=== PATIENT | female | born 1960 | race Caucasian/White ===

== ENCOUNTER 2019-09-25 09:41 | Outpatient (CLI) | payer OTHER, SELFPAY ==
--- NOTE | ~2019-09-25 | MM_ITS ---
EXAMINATION: MM screening [facility] [place] HISTORY: Screening mammogram TECHNIQUE: Craniocaudal and mediolateral oblique 3-D tomosynthesis images were obtained and synthetic 2-D images were generated. CAD analysis was submitted and interpreted. COMPARISON: 09/12/2018, 09/04/2017 BREAST PARENCHYMAL COMPOSITION: There are scattered areas of fibroglandular density. FINDINGS: There is no evidence of suspicious mass, calcification, or architectural distortion to sugg est malignancy in either breast. There has been no suspicious interval change. IMPRESSION: 1. No mammographic evidence of malignancy. 2. Recommend routine screening mammography in one year. BI-RADS Category 1: Negative Reviewed, dictated and finalized at location A.
== END 2019-09-25 09:42 | disposition home or self-care (01) ==
LOC: ANHIMG 09:43
PROVIDERS: PCP Family Medicine; Visit Provider Obstetrics & Gynecology
DX: Z12.31 Encounter for screening mammogram for malignant neoplasm of breast (principal)
CPT/HCPCS: 77063; 77067

== ENCOUNTER 2019-10-29 08:00 | Outpatient (RCR) | payer OTHER, SELFPAY ==
[2019-09-30 08:00] VITALS: BP_SYST 125
--- NOTE | 2019-09-30 09:09 | PTOPEVAL ---
PHYSICAL THERAPY EVALUATION AND PLAN OF CARE 09-30-2019 The PT evaluation was completed for the diagnosis of R shoulder impingement. Her plan of treatment is scheduled for 1x/week for 4 weeks. Paz requested 1x/week due to working and having a co-payment. She is motivated and will do her home exercises. Thank you for referring Paz Szymanski to [facility]. Please review, sign, date and return this plan of care CAITY. I agree with and certify that the following plan of care is medically necessary. Referring Physician Date Attending Provider: Demond Quigley MD *PT Outpatient Evaluation Start: 09/30/19 08:10 Document 09/30/19 08:00 ZENA (Rec: 09/30/19 09:09 ZENA [id number]) Outpatient Past Medical History Past Medical History Source of Past Medical History Patient Neurological History Hx Neurological Disorders No Significant History Cardiovascular History Hx Cardiac Disorders No Significant History Respiratory History Hx Sleep Apnea Yes Gastrointestinal History Hx Hernia Yes: hiatial hernia Musculoskeletal History Hx Back Pain Yes Hx Other Musculoskeletal Disorders Yes: chronic neck pain-treat by chiropractor Integumentary History Hx Other Skin Disorders Yes: basal cell cancer removal from nose Other History Hx Other Surgeries Yes: vein surgery R thigh for circulation Evaluation Information Problem Diagnosis R shoulder impingement Onset May 2019 Subjective Information pop in shoulder when closing Query Text:As Reported By Patient/ car trunk; had injection in Family shoulder 09-25-19; improved since injection; Diagnostic Tests X-Rays For This Problem Yes: mild A-C joint arthritis, Previous Treatments Previous Treatments For This Problem no PT for shoulder; chiropractor for neck and back pain Prior Level of Function Activity Level (Last 3 Months) 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
--- NOTE | 2019-10-29 08:49 | PTOPEVAL ---
PHYSICAL THERAPY RE-EVALUATION 10-29-2019 Ms. Szymanski has received 5 PT sessions, from September 29 to today, for the diagnosis of R shoulder impingement. Compared to the initial evaluation: pain rating has increased at the worst rating from 2 to 5/10; is able to tolerate lying on her shoulder now; AROM and strength of shoulder have improved; posture awareness has improved. And she has been educated on posture and home exercises. She continues to have tenderness over anterior and lateral GH joint, forward head and rounded shoulder posture. Abduction and extension increase her pain. Paz has a follow up appointment next week. If PT is to continue, please give her a new script. Thank you for referring Paz Szymanski to [facility]. Please review, sign, date and return this plan of care CAITY. I agree with and certify that the following plan of care is medically necessary. Referring Physician Date Attending Provider: Demond Quigley MD *PT Outpatient Re-Evaluation Document 10/29/19 08:07 ZENA (Rec: 10/29/19 08:48 ZENA [id number]) Pain Assessment Timing of Pain Assessment Timing of Pain Assessment Assessment Pain Scale Pain Scale Used Numeric (1 - 10) Self Report Pain Assessment Right Shoulder(s) Reported Pain Level 2 Pain Frequency Chronic Other Pain Description mild throb-top and ant shoulder Lowest Pain Intensity 0 Greatest Pain Intensity 5 Pain Aggravating Factors Exercise/Activity Other Pain Aggravating Factors abduct and ext shoulder; can lie on R side 10 min;incr pain work turn cyli Pain Relief Interventions Used By Inactivity/Rest Patient Other Alleviating Interventions arm at side, biofreeze, no meds Additional Pain Comments reinforced use of heat/ice- have not been using Pain Score Pain Score 2: Self Report Additional Pain Score Comments ice at end of session to decrease pain- reinforced use of ice; kinesiotape to shoulder decreases pain-- educated pt on application of tape for home use. Upper Extremity Range of Motion General Upper Extremity Range of Motion Gross Upper Extremity Range of Motion standing active/ supine Comments passive: R shoulder: flexion 140'/165'; [id number]'/ 150' ; ER- reach palm to back of head; IR- behind back, thumb to bra strap; pain increase with abduction and extension of shoulder; wall stand: distance mid GH to
--- NOTE | 2019-12-12 13:17 | PCPTNOTE ---
PHYSICAL THERAPY DISCHARGE 12-12-2019 Attending Provider: Demond Quigley MD Patient:Paz Szymanski Date of :1960 Mrs. Szymanski has not returned for any further treatments since the reevaluation on 10/29/2019, therefore she will be discharged at this time. Refer to the Reevaluation report for her status at the last session. Thank you for referring Paz to [facility]. Please review, sign, date and return this discharge summary CAITY. I have been updated about the patient's current status and I agree with discharge from the above service at this time. Referring Physician Date
== END 2019-12-15 09:43 | disposition home or self-care (01) ==
LOC: ANHPT 08:00
PROVIDERS: PCP Family Medicine; Visit Provider Orthopaedic Surgery
DX: M75.41 Impingement syndrome of right shoulder (principal)
CPT/HCPCS: 97110; 97161

== ENCOUNTER 2020-10-11 07:48 | Outpatient (CLI) | payer OTHER, SELFPAY ==
--- NOTE | ~2020-10-11 | MM_ITS ---
EXAMINATION: MM screening [facility] BI w [place] HISTORY: Screening mammogram TECHNIQUE: Craniocaudal and mediolateral oblique 3-D tomosynthesis images were obtained and synthetic 2-D images were generated. CAD analysis was submitted and interpreted. COMPARISON: 09/25/2019, 09/12/2018, 09/04/2017 BREAST PARENCHYMAL COMPOSITION: There are scattered areas of fibroglandular density. FINDINGS: There is no evidence of suspicious mass, calcification, or architectural distortion to sugg est malignancy in either breast. There has been no suspicious interval change. IMPRESSION: 1. No mammographic evidence of malignancy. 2. Recommend routine screening mammography in one year. BI-RADS Category 1: Negative Reviewed, dictated and finalized at location A.
== END 2020-10-11 07:49 | disposition home or self-care (01) ==
PROVIDERS: PCP Family Medicine; Visit Provider Obstetrics & Gynecology
DX: Z12.31 Encounter for screening mammogram for malignant neoplasm of breast (principal)
CPT/HCPCS: 77063; 77067

== ENCOUNTER 2021-11-04 07:06 | Outpatient (CLI) | payer OTHER, SELFPAY ==
--- NOTE | ~2021-11-04 | MM_ITS ---
EXAMINATION: MM screening [place] HISTORY: Screening TECHNIQUE: Craniocaudal and mediolateral oblique 3-D tomosynthesis images were obtained and synthetic 2-D images were generated. CAD analysis was submitted and interpreted. COMPARISON: Comparison to multiple prior studies sequentially, with oldest reviewed study dated 12/25. BREAST PARENCHYMAL COMPOSITION: There are scattered areas of fibroglandular density. FINDINGS: There is no evidence of suspicious mass, calcification, or architectural distortion to sugg est malignancy in either breast. There has been no suspicious interval change. IMPRESSION: 1. No mammographic evidence of malignancy. 2. Recommend routine screening mammography in one year. BI-RADS Category 1: Negative Reviewed, dictated and finalized at location L.
== END 2021-11-04 07:07 | disposition home or self-care (01) ==
LOC: ANHIMG 07:11
PROVIDERS: PCP Family Medicine; Visit Provider Obstetrics & Gynecology
DX: Z12.31 Encounter for screening mammogram for malignant neoplasm of breast (principal)
CPT/HCPCS: 77063; 77067

== ENCOUNTER 2022-04-17 07:29 | Outpatient (CLI) | payer OTHER, SELFPAY ==
--- NOTE | ~2022-04-17 | XR_ITS ---
EXAMINATION: XR chest 2V DATE: 04/17/2022 07:44 INDICATION: Cough TECHNIQUE: PA and lateral views of the chest were obtained. COMPARISON: None FINDINGS: Linear discoid atelectasis/scarring at the right lower lobe. No other airspace opacities, pulmonary e evy, pleural effusion or pneumothorax. The cardiomediastinal silhouette is normal. Visualized bones and soft tissues are unremarkable. IMPRESSION: 1. Mild discoid atelectasis/scarring in the right lower lobe. Reviewed, dictated and finalized at location B. LING TANK OPERATOR
== END 2022-04-17 07:30 | disposition home or self-care (01) ==
LOC: ANHIMG 07:32
PROVIDERS: PCP Family Medicine; Visit Provider Family Medicine
DX: R05.9 Cough, unspecified (principal); R91.8 Other nonspecific abnormal finding of lung field
CPT/HCPCS: 71046

== ENCOUNTER 2022-09-06 09:42 | Outpatient (CLI) | payer OTHER, SELFPAY ==
--- NOTE | ~2022-09-06 | CT_ITS ---
EXAMINATION: CT lung screening DATE: 09/06/2022 10:13 INDICATION: Current smoker. Screening for lung cancer. TECHNIQUE: Computed tomography (CT) of the chest was performed without intravenous contrast. The dose -length product was 76.53 mGy-cm. Automated exposure control and iterative reconstruction technique w ere employed. COMPARISON: Chest x-ray dated 04/17/2022 FINDINGS: There is right hydronephrosis. No significant pleural or pericardial effusion. No thoracic lymphadenopathy. There is mild atherosclerosis. No endobronchial lesions. There is chronic right lowe r lobe atelectasis/scarring. No pneumothorax. There are a few small 1 mm nodules of the upper lobes, likely benign. Mild thoracic spondylosis. Accentuated thoracic kyphosis. No focal lytic or blastic le sions. IMPRESSION: 1. Lung-RADS category 2: Benign appearance or behavior. Continue annual screening with noncontrast lo w-dose chest CT in 12 months. 2: Right hydronephrosis, partially visualized. Consider correlation with CT abdomen and pelvis witho ut and with contrast. Reviewed, dictated and finalized at location B. IMPRESSION: 1. Lung-RADS category 2: Benign appearance or behavior. Continue annual screeni ng with noncontrast low-dose chest CT in 12 months. 2: Right hydronephrosis, partially visualized. Consider correlation with CT ab domen and pelvis without and with contrast.
== END 2022-09-06 09:43 | disposition home or self-care (01) ==
PROVIDERS: PCP Family Medicine; Visit Provider Nurse Practitioner Family
DX: Z12.2 Encounter for screening for malignant neoplasm of respiratory organs (principal); F17.210 Nicotine dependence, cigarettes, uncomplicated; N13.30 Unspecified hydronephrosis
CPT/HCPCS: 71271

== ENCOUNTER 2022-09-11 13:36 | Outpatient (CLI) | payer OTHER, SELFPAY ==
--- NOTE | ~2022-09-11 | CT_ITS ---
EXAMINATION: CT abdomen pelvis wo/w con DATE: 09/11/2022 14:40 INDICATION: Right hydronephrosis seen on lung scan. TECHNIQUE: Computed tomography (CT) of the abdomen and pelvis was performed without and with 130 cc O mnipaque 350 intravenous contrast. The dose-length product was 1251.92 mGy-cm. Automated exposure control and iterative reconstruction technique were employed. COMPARISON: CT dated 09/06/2022 FINDINGS: There is dependent atelectasis. Heart size normal. No significant pleural or pericardial ef fusion. There is hepatomegaly. The spleen, pancreas, adrenal glands are unremarkable. There is a larg e parapelvic cyst of the right kidney measuring 6 cm. No hydronephrosis. Gallbladder is present. Nono bstructive bowel pattern. There is a fat-containing right inguinal hernia. No free air or free fluid. No acute osseous abnormality. There is grade 1 spondylolisthesis at L5-S1 secondary to spondylolysis . IMPRESSION: 1. Large right renal parapelvic cyst measuring 6 cm corresponds to abnormality seen on prior chest CT . No hydronephrosis. 2: Hepatomegaly. 3: Fat-containing right inguinal hernia. Reviewed, dictated and finalized at location B. IMPRESSION: 1. Large right renal parapelvic cyst measuring 6 cm corresponds to abnormality seen on prior chest CT. No hydronephrosis. 2: Hepatomegaly. 3: Fat-containing right inguinal hernia.
[2022-09-11 14:20] LABS: Estimated Glomerular Filt Rate > 60
== END 2022-09-11 13:37 | disposition home or self-care (01) ==
PROVIDERS: PCP Family Medicine; Visit Provider Nurse Practitioner Family
DX: N13.30 Unspecified hydronephrosis (principal); R93.89 Abnormal findings on diagnostic imaging of other specified body structures; K40.90 Unilateral inguinal hernia, without obstruction or gangrene, not specified as recurrent; N28.1 Cyst of kidney, acquired
CPT/HCPCS: 74178; Q9967

== ENCOUNTER 2022-12-28 07:39 | Outpatient (CLI) | payer OTHER, SELFPAY ==
--- NOTE | ~2022-12-28 | MM_ITS ---
EXAMINATION: MM screening [facility] [place] HISTORY: Screening mammogram TECHNIQUE: Craniocaudal and mediolateral oblique 3-D tomosynthesis images were obtained and synthetic 2-D images were generated. CAD analysis was submitted and interpreted. COMPARISON: 11/04/2021, 10/11/2020, 09/25/2019 BREAST PARENCHYMAL COMPOSITION: There are scattered areas of fibroglandular density. FINDINGS: No suspicious mass, calcification, or architectural distortion are identified in either shivani ast to suggest malignancy. There has been no suspicious interval change. IMPRESSION: 1. No mammographic evidence of malignancy. 2. Recommend routine screening mammography in one year. BI-RADS Category 1: Negative Reviewed, dictated and finalized at location L.
== END 2022-12-28 07:40 | disposition home or self-care (01) ==
PROVIDERS: PCP Family Medicine; Visit Provider Obstetrics & Gynecology
DX: Z12.31 Encounter for screening mammogram for malignant neoplasm of breast (principal)
CPT/HCPCS: 77063; 77067

== ENCOUNTER 2023-03-13 13:25 | Outpatient (CLI) | payer OTHER, SELFPAY ==
--- NOTE | 2023-03-13 13:30 | ECG_ITS ---
Measurements Intervals [place] Rate: 63 P: 50 MS: 133 QRS: -8 QRSD: 95 T: 45 QT: 407 QTc: 418 Interpretive Statements SINUS RHYTHM MINIMAL Q WAVES- HIGH LATERAL LEADS BORDERLINE T WAVE ABNORMALITY- INFERIOR LEADS BASELINE ARTIFACT- I, III, AVR, AVL BORDERLINE ECG NO PREVIOUS ECG AVAILABLE FOR COMPARISON Electronically Signed On 03-13-2023 14:51:12 WOOD INSPECTOR by Ugo Callejas D.O.
== END 2023-03-13 13:26 | disposition home or self-care (01) ==
LOC: ANHSURGERY 13:31
PROVIDERS: PCP Family Medicine; Visit Provider Surgery
DX: Z01.818 Encounter for other preprocedural examination (principal); R93.1 Abnormal findings on diagnostic imaging of heart and coronary circulation; E78.2 Mixed hyperlipidemia; K40.90 Unilateral inguinal hernia, without obstruction or gangrene, not specified as recurrent
CPT/HCPCS: 36415; 86850; 86900; 86901; 93005

== ENCOUNTER 2023-03-15 02:04 | Day surgery (SDC) | payer OTHER, SELFPAY ==
[2023-03-09 10:48] VITALS: BMI 25.8
--- NOTE | 2023-03-09 10:56 | PC.NURSE ---
Report to the Outpatient Waiting Room, entrance under the green pavilion located off [facility], at time 10:00 on date 03/15/23. Planned Procedure Time: 12:00. Time changes happen often and if your time is changed the preop area will call you the afternoon before. - You and your visitor will be asked to self-screen and do not enter if you have any COVID symptoms. - A mask is optional within the hospital at this time. Patients may have clear liquids (water, carbonated beverages, clear teas, apple juice) until 3 hours prior to surgery (9:00) with a maximum of 20 ounces. - No food from midnight until time of surgery Take the following medications with a SIP of water the morning of surgery: NONE DO NOT STOP ANY OF YOUR OTHER PRESCRIPTION MEDICATIONS PRIOR TO SURGERY ?EXCEPT THE FOLLOWING Medications to discontinue per physician: VITAMINS/SUPPLEMENTS Date to take last dose: 03/11/23 Please no make-up, nail ukrainian, hairspray, perfume, deodorant, or body powder the day of surgery. No jewelry (including any body piercings) or valuables the day of surgery, leave them at home. Please take a shower or bath the night before, or the morning of, surgery with an antibacterial soap. Wear comfortable, loose fitting clothing. - Jewelry must be removed prior to entering the operating room. Rings and piercings that are not removed may be cut off. - The hospital will not accept responsibility for valuables. - Please leave all valuables, including medications, at home the day of surgery. If you are going home after surgery, a licensed peg driver must drive you home. - NO public transportation without another adult if you receive anesthesia. - We recommend that an adult stay with you for 24 hours following discharge. - We also recommend that you do not drive, make important decision, drink alcoholic beverages, or take any drugs that were not prescribed by your health care provider for at least 24 hours after your discharge time. Follow any additional instructions given to you from your surgeon. If you or anyone in your household have experienced Covid symptoms in the past week, please notify your surgeon or the nurse liaison at the phone number below for possible testing. Telephone instructions given to PT Abbey GREEN and asked if any additional questions and then verbalized understanding. Patient advised to call surgeon office or pre surgery nurse liaison [phone] if any additional questions.
[2023-03-15] VITALS (9 sets, daily range): BP systolic 116–132; BP diastolic 65–84; PULSE 69–80; RESP 12–20; TEMP 36.1; O2SAT 96–100; BMI 25.7
[2023-03-15] MEDS: LACTATED RINGERS 1,000 ML 30 ML IV CONT ×2 (10:48→13:52)
[2023-03-15] MEDS: KETOROLAC 15 MG/ML VIAL (*BKC) IV PUSH (10:48)
[2023-03-15] MEDS: ACETAMINOPHEN 500 MG TABLET 1000 MG PO (10:48)
--- NOTE | 2023-03-15 11:13 | WPDANESEPPF ---
Anes - Initial Pre Proc Eval Procedure: Operation Date: 03/15/23 12:00 Proposed Procedures p Robotic Assisted Right Inguinal Hernia Repair with Mesh - Landy Mason MD Date/Time: 03/15/23 11:13 Surgeon: Landy Mason MD Pre Op Diagnosis: Rt Ing Hernia Patient Data Age: 62 Gender: F Height: 1.73 m Weight: 76.8 kg Last Vital Signs Temp 36.1 C L 03/15/23 10:05 Pulse 69 03/15/23 10:05 Resp 16 03/15/23 10:05 BP 116/66 03/15/23 10:05 Pulse Ox 97 03/15/23 10:05 O2 Del Method Room Air 03/15/23 10:05 Allergies Allergy/AdvReac Type Severity Reaction Status Date / Time codeine Allergy Mild NAUSEA Verified 03/09/23 10:46 Home Medications Medication Instructions Recorded Confirmed Type calcium carbonate 600 mg calcium 600 mg PO DAILY 09/22/22 03/09/23 History (1,500 mg) tablet (Calcium) diphenhydramine 25 1 tablet PO QHS PRN Sleep 09/22/22 03/09/23 History mg-acetaminophen 500 mg tablet (Tylenol PM Extra Strength) [id number] 8 mg-folic 400 1 tablet PO DAILY 09/22/22 03/09/23 History mcg-K 50 mcg-lutein 300 mcg tablet (Multivitamin Women 50 Plus) vitamin B complex 1 tablet PO DAILY 09/22/22 03/09/23 History simvastatin 40 mg tablet 40 mg PO DAILY #90 tabs 10/02/22 03/09/23 Rx omeprazole 40 mg capsule,delayed 40 mg PO DAILY #90 caps 11/06/22 03/09/23 Rx release diclofenac sodium 1 % topical gel 2 g topical QID 01/03/23 03/09/23 History (Voltaren Arthritis Pain) Patient hx anesthesia problems: none Family hx anesthesia problems: none Results Review: All pre-operative results and documents have been reviewed as part of the pre-operative evaluation. [facility] Past Medical History Medical History Abnormal CT scan (~08/2022) Adult BMI 25.0-25.9 kg/sq m Arthritis BMI 26.0-26.9,adult Breast cancer screening by mammogram normal mammogram 12/28/2022. Bronchitis Carpal tunnel syndrome on both sides Chronic constipation Chronic right shoulder pain Cough Chest x-ray on 04/17/2022 with mild discoid atelectasis right lower lobe otherwise normal Depression Encounter for wellness examination in adult GERD (gastroesophageal reflux disease) History of ectopic (~1990) Hydronephrosis of right kidney CT of the abdomen on 09/11/2022 reveals a 6 cm parapelvic cyst of the right kidney with no evidence of hydronephrosis. Fat containing right inguinal hernia. Menopausal symptoms Mixed hyperlipidemia Total cholesterol 205, triglycerides 144, HDL 56, LDL 123 with ratio 3.7 on 09/19/2022. Neoplasm of skin Obstructive sleep apnea failure on CPAP due to headache. Hemoglobin 15.1, hematocrit 45.5 on 09/19/2022. Overweight (BMI 25.0-29.9) Pain, joint, hand, left pain base of left thumb Renal cyst, acquired, right (~09/11/22) 6 cm parapelvic right renal cyst with no evidence of hydronephrosis on 09/11/2022. Screening for lung cancer Sleep apnea Tobacco use disorder, continuous patient quit smoking on 09/14/2022. Surgical History Surgical History H/O adenoidectomy (~1964) H/O vein stripping (~2009) right leg Hx of tonsillectomy (~1964) Status post Mohs surgery (~2005) tip of nose Family History Family History Mother Heart disease GERD (gastroesophageal reflux disease) Acute myocardial infarction Father Asthma Heart disease Emphysema of lung Acute myocardial infarction Sibling Heart disease Asthma Migraines Social History Social History Smoking packs per day: 0.75 Smoking cigarettes per day: 15.0 Years smoked: 40 Smoking pack-years: 30.00 Smoking status: Former smoker Tobacco type: cigarettes Smoking end date: 09/14/22 Alcohol intake: never Substance use: never Substance use type: does not use La
--- NOTE | 2023-03-15 11:58 | PM.IMHP ---
H&P: HPI History of Present Illness Date/Time: 03/15/23 11:59 Chief Complaint: right inguinal hernia Narrative: Paz is a 62 y/o female who presents to the office at the request of Radha Blanca NP for evaluation of a right inguinal hernia. Patient states she first noticed a bulge in her right groin as well as right groin pain that radiated down into her thigh ~30 years ago. She states recently the pain has become more frequent over the past few months. She has not noticed any increase in size of the bulge. She states the bulge is somewhat reducible, but there are times she is unable to push it back in. CT abd/pelvis on 09/11/22 revealed a fat-containing right inguinal hernia. Review of Systems Review of Systems: All systems reviewed & are unremarkable except as noted in HPI and below PMFSH Past Medical History Medical History Abnormal CT scan (~08/2022) Adult BMI 25.0-25.9 kg/sq m Arthritis BMI 26.0-26.9,adult Breast cancer screening by mammogram normal mammogram 12/28/2022. Bronchitis Carpal tunnel syndrome on both sides Chronic constipation Chronic right shoulder pain Cough Chest x-ray on 04/17/2022 with mild discoid atelectasis right lower lobe otherwise normal Depression Encounter for wellness examination in adult GERD (gastroesophageal reflux disease) History of ectopic (~1990) Hydronephrosis of right kidney CT of the abdomen on 09/11/2022 reveals a 6 cm parapelvic cyst of the right kidney with no evidence of hydronephrosis. Fat containing right inguinal hernia. Menopausal symptoms Mixed hyperlipidemia Total cholesterol 205, triglycerides 144, HDL 56, LDL 123 with ratio 3.7 on 09/19/2022. Neoplasm of skin Obstructive sleep apnea failure on CPAP due to headache. Hemoglobin 15.1, hematocrit 45.5 on 09/19/2022. Overweight (BMI 25.0-29.9) Pain, joint, hand, left pain base of left thumb Renal cyst, acquired, right (~09/11/22) 6 cm parapelvic right renal cyst with no evidence of hydronephrosis on 09/11/2022. Screening for lung cancer Sleep apnea Tobacco use disorder, continuous patient quit smoking on 09/14/2022. Surgical History Surgical History H/O adenoidectomy (~1964) H/O vein stripping (~2009) right leg Hx of tonsillectomy (~1964) Status post Mohs surgery (~2005) tip of nose Family History Family History Mother Heart disease GERD (gastroesophageal reflux disease) Acute myocardial infarction Father Asthma Heart disease Emphysema of lung Acute myocardial infarction Sibling Heart disease Asthma Migraines Social History Social History Smoking packs per day: 0.75 Smoking cigarettes per day: 15.0 Years smoked: 40 Smoking pack-years: 30.00 Smoking status: Former smoker Tobacco type: cigarettes Smoking end date: 09/14/22 Alcohol intake: never Substance use: never Substance use type: does not use Lack of Transportation: No Lack of Food: Never True Current Housing: I Have Housing Concerned About Future Housing: No Difficulty Paying Gas/Electric Bills: No Difficulty Paying for Meds: No Currently Unemployed: No Education: Associate Degree Difficulty w/ Childcare or Family Care: No Living arrangements: alone Spiritual care concerns: No Meds Home Medications and Allergies Home Medications Medication Instructions Recorded Confirmed Type calcium carbonate 600 mg calcium 600 mg PO DAILY 09/22/22 03/09/23 History (1,500 mg) tablet (Calcium) diphenhydramine 25 1 tablet PO QHS PRN Sleep 09/22/22 03/09/23 History mg-acetaminophen 500 mg tablet (Tylenol PM Extra Strength) [id number] 8 mg-folic 400 1 tablet PO DAILY 09/22/22 03/09/23 History mcg-K 50 mcg-lutein 300 mcg tablet (Multivitamin Women 50
--- NOTE | 2023-03-15 12:03 | WPDHPUPDATE1 ---
History and Physical Update Update Date/Time: 03/15/23 12:03 History and Physical has been reviewed, including an updated exam of the patient. There are NO changes in the patient's condition. Risks, benefits, and alternatives have been discussed and questions answered. Patient agrees to proceed with procedure.
[2023-03-15] MEDS: ceFAZolin 2 GM/D5W 50 ML 2 GM/50 ML BAG IVPB (12:09)
[2023-03-15] MEDS: BUPIVACAINE/EPINEPHRINE 0.5% 50 ML VIAL 30 ML INFILTRATE (12:50)
--- NOTE | 2023-03-15 13:32 | W.PM.PROC2 ---
Procedure Note - Detailed Date of Procedure 03/15/23 Pre-op Diagnosis Right inguinal hernia Post-op Diagnosis Same Procedure Performed robotic assisted right inguinal hernia repair with mesh, lysis of adhesions of approximately 30 minutes Surgeon Landy Mason MD Anesthesia General Indications 62-year-old female with progressively worsening right inguinal hernia over the last few years Findings indirect right inguinal hernia, extensive adhesions in lower abdomen Description of Procedure Patient was brought into the operating room and placed in the supine position. After adequate induction of general anesthesia, the patient was prepped and draped in normal sterile fashion. A time-out was then done to verify the patient's identity, as well as the procedure being performed. Began by making a 8 mm incision in the supraumbilical region, a Veress needle was then placed into the peritoneal cavity. CO2 gas was then insufflated and after adequate pneumoperitoneum was achieved, the Veress needle was removed. I then placed an 8 mm trocar through this incision. I then placed the endoscope through this trocar site and under direct visualization placed a further 8 mm port in the left mid abdomen. There was noted to be extensive adhesions in the lower pelvis, particularly on the right. Given these findings, I did a lysis of adhesions to allow placement of the right mid abdominal port. This was done sharply and bluntly with the laparoscopic scissors under direct visualization. Once adequate dissection was done, I placed a further 8 mm port in right mid abdomen under direct visualization. The [employer] robot was then docked to the 3 trocar sites. I then scrubbed out and went to the robotic console. Upon examining the pelvis, it was noted that the patient had a large right inguinal hernia. The left side was examined and no hernia defect was noted. I finished the lysis of adhesions using the robotic instruments. The total time of lysis of adhesions took approximately 30 minutes. I began by making a preperitoneal flap approximately 6 cm superior to the defect. This flap was carried medially past the umbilical ligaments in laterally to the transversalis. It then began dissection of my medial compartment taking this down to the pubic tubercle. I then began the lateral dissection taking this down to the transversalis fascia. Once these compartments were achieved, I began dissection around round ligament . A large indirect hernia was noted at this point. Using careful dissection, was able to reduce indirect hernia sac off the round ligament. Given the size of the hernia, I did go ahead and transect the round ligament to allow better placement of the mesh. Once this was adequately done, I went ahead and placed a large piece of 3D Max mesh into the abdominal cavity. The mesh was carefully positioned, centering the center of the mesh over the indirect defect. Once this was done, was very satisfied with our repair. Using 3-0 Vicryl sutures, I tacked the mesh medially to Tien's ligament. Two lateral sutures were placed from the mesh to the transversalis fascia. I then closed the peritoneal flap with a running 2.0 V Lock suture. The abdomen was then desufflated, and all ports were removed. All incisions were then closed with the 4.0 monocryl suture. Dermabond was placed on each wound. The patient tolerated the procedure well, was extubated in the operating room postoperatively, and will now be transferred to the recovery room in stable condition. Implants large 3DMax mesh Estimated Blood Loss 10 Drains No Packing No Pathology None sent Complications No immediate complications Condition Stable Disposition PACU [facility] Billing Surgery - Charge Forward: Surgery Billing
[2023-03-15] MEDS: traMADol HCL (*CRX) 50 MG TABLET PO (15:36)
== END 2023-03-15 15:40 | disposition home or self-care (01) ==
PROVIDERS: PCP Family Medicine; Visit Provider Surgery
PROC: 8E0Y4CZ Robotic Assisted Procedure of Lower Extremity, Percutaneous Endoscopic Approach (ICD-10-PCS; CPT 49650; principal; 2023-03-15 12:00)
DX: K40.90 Unilateral inguinal hernia, without obstruction or gangrene, not specified as recurrent (principal); K66.0 Peritoneal adhesions (postprocedural) (postinfection); E78.2 Mixed hyperlipidemia; K59.09 Other constipation; F32.A Depression, unspecified; K21.9 Gastro-esophageal reflux disease without esophagitis; Z85.828 Personal history of other malignant neoplasm of skin; G47.33 Obstructive sleep apnea (adult) (pediatric); Z99.89 Dependence on other enabling machines and devices; Z82.49 Family history of ischemic heart disease and other diseases of the circulatory system; Z87.891 Personal history of nicotine dependence
CPT/HCPCS: 49650; S2900; 36415; 86850; 86900; 86901; 93005; A9270; C1781; J0690; J1100; J1885; J2405; J2704; J3475; J7030; J7120

== ENCOUNTER 2023-05-03 17:29 | Emergency (ER) | payer OTHER, SELFPAY ==
[2023-05-03 17:46] VITALS: BP 124/71; PULSE 68; RESP 16; TEMP 37; O2SAT 99
--- NOTE | 2023-05-03 18:38 | ED.EAR ---
HPI - Ear Problem General Chief complaint: Ear Stated complaint: ringing in ears Time Seen by Provider: 05/03/23 18:39 Source: patient Mode of arrival: ambulatory Limitations: no limitations History of Present Illness HPI Narrative: 62-year-old female presents with complaint of ringing and whooshing noise to left ear. States I can feel my self talking and my ear . Denies pain. No other symptoms. Denies congestion, cough, postnasal drainage, headache, fever, chills. All systems reviewed and negative except as noted above. Related Data Home Medications Medication Instructions Recorded Confirmed vitamin B complex 1 tablet PO DAILY 09/22/22 05/03/23 Allergies Allergy/AdvReac Type Severity Reaction Status Date / Time codeine Allergy Mild NAUSEA Verified 05/03/23 17:50 Review of Systems Review of Systems: CONSTITUTIONAL: Denies fever, chills, or sweats. EYES: Denies visual changes, redness, or discharge. ENT: Denies rhinorrhea, congestion, sore throat, or otalgia. Reports ringing and wishing to left ear. CARDIOVASCULAR: Denies chest pain, palpitations, or edema. RESPIRATORY: Denies cough or dyspnea. GASTROINTESTINAL: Denies abdominal pain, nausea, vomiting, or diarrhea. GENITOURINARY: Denies dysuria or hematuria. SKIN: Denies rash or itching. MUSCULOSKELETAL: Denies back pain, joint pain, or myalgia. NEUROLOGIC: Denies headache, numbness, or weakness. PSYCHIATRIC: Denies anxiety or depression. All other systems reviewed are negative, except as documented in HPI. [facility] Past Medical History Medical History (Updated 05/03/23 @ 18:45 by Nathalia Amado NP) Abnormal CT scan (~08/2022) Adult BMI 25.0-25.9 kg/sq m Arthritis BMI 26.0-26.9,adult Breast cancer screening by mammogram normal mammogram 12/28/2022. Bronchitis Carpal tunnel syndrome on both sides Chronic constipation Chronic right shoulder pain Cough Chest x-ray on 04/17/2022 with mild discoid atelectasis right lower lobe otherwise normal Depression Encounter for wellness examination in adult GERD (gastroesophageal reflux disease) History of ectopic (~1990) Hydronephrosis of right kidney CT of the abdomen on 09/11/2022 reveals a 6 cm parapelvic cyst of the right kidney with no evidence of hydronephrosis. Fat containing right inguinal hernia. Menopausal symptoms Mixed hyperlipidemia Total cholesterol 205, triglycerides 144, HDL 56, LDL 123 with ratio 3.7 on 09/19/2022. Neoplasm of skin Obstructive sleep apnea failure on CPAP due to headache. Hemoglobin 15.1, hematocrit 45.5 on 09/19/2022. Overweight (BMI 25.0-29.9) Pain, joint, hand, left pain base of left thumb Renal cyst, acquired, right (~09/11/22) 6 cm parapelvic right renal cyst with no evidence of hydronephrosis on 09/11/2022. Screening for lung cancer Sleep apnea Tobacco use disorder, continuous patient quit smoking on 09/14/2022. Surgical History Surgical History (Updated 03/28/23 @ 10:02 by Dimple Jones MA) H/O adenoidectomy (~1964) H/O vein stripping (~2009) right leg Hx of inguinal hernia repair robotic assisted right inguinal hernia repair with mesh, lysis of adhesions of approximately 30 minutes on 03/14/23 Hx of tonsillectomy (~1964) Status post Mohs surgery (~2005) tip of nose Family History Family History Mother Heart disease GERD (gastroesophageal reflux disease) Acute myocardial infarction Father Asthma Heart disease Emphysema of lung Acute myocardial infarction Sibling Heart disease Asthma Migraines Social History Social History Smoking packs per day: 0.75 Smoking cigarettes per day: 15.0 Years smoked: 40 Smoking pack-years: 30.00 Smoking status: Former smoker Tobacco type: cigarettes Smoking end date: 09/14/22 Alcohol intake: never Substance use: never Substance use type: does not use
== END 2023-05-03 18:50 | disposition home or self-care (01) ==
PROVIDERS: Emergency Provider Nurse Practitioner Family; PCP Family Medicine
DX: H93.12 Tinnitus, left ear (principal); H69.92 Unspecified Eustachian tube disorder, left ear; Z87.891 Personal history of nicotine dependence; K21.9 Gastro-esophageal reflux disease without esophagitis; E78.2 Mixed hyperlipidemia; M19.90 Unspecified osteoarthritis, unspecified site; Z85.828 Personal history of other malignant neoplasm of skin
CPT/HCPCS: 99212; G0463

== ENCOUNTER 2023-08-01 09:30 | Outpatient (CLI) | payer OTHER, SELFPAY ==
--- NOTE | 2023-08-01 09:49 | EST_ITS ---
Patient Info Name: Paz Szymanski Age: 62 years : 1960 Gender: Female Ht: 67 in Wt: 172 lbs BSA: 1.94 m2 HR: 66 bpm BP: 146 / 75 mmHg Heart Rhythm: Sinus Rhythm Exam Date: 08/01/2023 10:08 AM Exam Location: Echo Lab Patient Status: Outpatient Admit Date: 08/01/2023 Staff Ordering Physician: Vicente Akers MD Attending Provider: Vicente Akers MD Exercise Technologist: Josiane Ponce CT Exercise Physician: Ugo Callejas DO Exam Type: CA stress test treadmill Study Info Indications R07.89 - Other chest pain A treadmill exercise stress test was performed. Summary 1. 1. Negative Javan exercise stress test for ischemic ST changes by ECG criteria. 2. 2. Good functional capacity, achieving 7 METs of workload. 3. 3. Baseline hypertension. 4. 4. Appropriate HR response to exercise. 5. 5. Appropriate HR recovery at 1 minute post exercise. 6. 6. No imaging with stress testing. 7. 7. Patient informed of the above results. Protocol: Javan Stress ECG Details Stage: REST Duration (min): 1 min : 2 sec Speed (mph): 0.0 Grade (%): 0 HR (bpm): 67 SBP (mmHg): 146 DBP (mmHg): 75 METS: --- Stage: REST Duration (min): 6 min : 31 sec Speed (mph): 0.0 Grade (%): 0 HR (bpm): 80 SBP (mmHg): 146 DBP (mmHg): 75 METS: --- Stage: STAGE 1 Duration (min): 1 min : 0 sec Speed (mph): 1.7 Grade (%): 10 HR (bpm): 105 SBP (mmHg): 146 DBP (mmHg): 75 METS: --- Stage: STAGE 1 Duration (min): 2 min : 0 sec Speed (mph): 1.7 Grade (%): 10 HR (bpm): 109 SBP (mmHg): 146 DBP (mmHg): 75 METS: --- Stage: STAGE 1 Duration (min): 3 min : 0 sec Speed (mph): 1.7 Grade (%): 10 HR (bpm): 112 SBP (mmHg): 160 DBP (mmHg): 82 METS: --- Stage: STAGE 2 Duration (min): 1 min : 0 sec Speed (mph): 2.5 Grade (%): 12 HR (bpm): 123 SBP (mmHg): 160 DBP (mmHg): 82 METS: --- Stage: STAGE 2 Duration (min): 2 min : 0 sec Speed (mph): 2.5 Grade (%): 12 HR (bpm): 132 SBP (mmHg): 163 DBP (mmHg): 87 METS: --- Stage: STAGE 2 Duration (min): 3 min : 0 sec Speed (mph): 2.5 Grade (%): 12 HR (bpm): 138 SBP (mmHg): 163 DBP (mmHg): 87 METS: --- Stage: RECOVERY Duration (min): 0 min : 59 sec Speed (mph): 0.0 Grade (%): 0 HR (bpm): 116 SBP (mmHg): 157 DBP (mmHg): 82 METS: --- Stage: RECOVERY Duration (min): 1 min : 26 sec Speed (mph): 0.0 Grade (%): 0 HR (bpm): 112 SBP (mmHg): 157 DBP (mmHg): 82 METS: --- Rest HR: 80 bpm Peak HR: 139 bpm Rest Sys BP: 146 mmHg Peak Sys BP: 163 mmHg Max Pred HR: 158 bpm % Max Pred HR: 88 % Target HR: 134 bpm Max RPP: 22,657 bpm*mmHg Olmos Score: 3 Termination Reason: Reached target heart rate or workload Cardiac Symptoms: Shortness of breath Max ST Seg Deviation: -0.60 mm Total Time: 6 min : 0 sec Rest Armstrong BP: 75 mmHg Peak Armstrong BP: 87 mmHg Angina Score: None Total METS: 7.1 Resting ECG Sinus rhythm. Stress ECG No ST changes. Arrhythmias None.
== END 2023-08-01 09:31 | disposition home or self-care (01) ==
PROVIDERS: PCP Family Medicine; Visit Provider Family Medicine
DX: R07.89 Other chest pain (principal); I10 Essential (primary) hypertension
CPT/HCPCS: 93017

== ENCOUNTER 2024-01-24 15:46 | Outpatient (CLI) | payer OTHER, SELFPAY ==
--- NOTE | ~2024-01-24 | MM_ITS ---
EXAMINATION: MM screening jacky BI w [place] HISTORY: Screening TECHNIQUE: Craniocaudal and mediolateral oblique 3-D tomosynthesis images were obtained and synthetic 2-D images were generated. CAD analysis was submitted and interpreted. COMPARISON: Comparison to multiple prior studies sequentially, with oldest reviewed study dated 11/2017. BREAST PARENCHYMAL COMPOSITION: Not dense: There are scattered areas of fibroglandular density. FINDINGS: There is no evidence of suspicious mass, calcification, or architectural distortion to sugg est malignancy in either breast. There has been no suspicious interval change. IMPRESSION: 1. No mammographic evidence of malignancy. 2. Recommend routine screening mammography in one year. BI-RADS Category 1: Negative Reviewed, dictated and finalized at location B.
== END 2024-01-24 15:47 | disposition home or self-care (01) ==
LOC: ANHIMG 15:47
PROVIDERS: PCP Family Medicine; Visit Provider Obstetrics & Gynecology
DX: Z12.31 Encounter for screening mammogram for malignant neoplasm of breast (principal)
CPT/HCPCS: 77063; 77067

== ENCOUNTER 2024-03-03 01:38 | Day surgery (SDC) | payer OTHER, SELFPAY ==
[2024-02-18 14:52] VITALS: BMI 27.2
[2024-03-03 07:38] VITALS: BP 128/82; PULSE 91; RESP 18; TEMP 36; O2SAT 97; BMI 26.2
[2024-03-03] MEDS: LACTATED RINGERS 1,000 ML 150 ML IV CONT (08:01)
--- NOTE | 2024-03-03 08:17 | WPDANESEPPF ---
Anes - Initial Pre Proc Eval Procedure: Operation Date: 03/03/24 09:00 Proposed Procedures p Colonoscopy - Noah Brito MD Date/Time: 03/03/24 08:17 Surgeon: Noah Brito MD Pre Op Diagnosis: neoplasm screening Patient Data Age: 63 Gender: F Height: 1.7 m Weight: 76 kg Last Vital Signs Temp 36.0 C L 03/03/24 07:38 Pulse 91 03/03/24 07:38 Resp 18 03/03/24 07:38 BP 128/82 03/03/24 07:38 Pulse Ox 97 03/03/24 07:38 O2 Del Method Room Air 03/03/24 07:38 Allergies Allergy/AdvReac Type Severity Reaction Status Date / Time codeine Allergy Mild NAUSEA Verified 03/03/24 07:46 Home Medications Medication Instructions Recorded Confirmed Type vitamin B complex 1 tablet PO DAILY 09/22/22 03/03/24 History meloxicam 15 mg tablet 15 mg PO DAILY PRN pain #90 tabs 07/12/23 03/03/24 Rx simvastatin 40 mg tablet 40 mg PO DAILY #90 tabs 09/25/23 03/03/24 Rx omeprazole 40 mg capsule,delayed 40 mg PO DAILY #90 caps 10/22/23 03/03/24 Rx release venlafaxine 75 mg capsule,extended 75 mg PO QAM #90 caps 02/07/24 03/03/24 Rx release 24 hr (Effexor XR) Patient hx anesthesia problems: none Family hx anesthesia problems: none Results Review: All pre-operative results and documents have been reviewed as part of the pre-operative evaluation. [facility] Past Medical History Medical History Abnormal CT scan (~08/2022) Adult BMI 25.0-25.9 kg/sq m Arthritis BMI 26.0-26.9,adult BMI 27.0-27.9,adult Breast cancer screening by mammogram normal mammogram 12/28/2022. normal mammogram 01/24/2024. Bronchitis Carpal tunnel syndrome on both sides Chronic constipation Chronic right shoulder pain Colon cancer screening patient reports normal exam 2010. Cough Chest x-ray on 04/17/2022 with mild discoid atelectasis right lower lobe otherwise normal Depression Encounter for surgical aftercare following surgery on the skin and subcutaneous tissue Encounter for wellness examination in adult Exertional chest pain Exercise stress test normal on 08/01/2023. GERD (gastroesophageal reflux disease) Hernia History of ectopic (~1990) Hydronephrosis of right kidney CT of the abdomen on 09/11/2022 reveals a 6 cm parapelvic cyst of the right kidney with no evidence of hydronephrosis. Fat containing right inguinal hernia. Menopausal symptoms Mixed hyperlipidemia Total cholesterol 205, triglycerides 144, HDL 56, LDL 123 with ratio 3.7 on 09/19/2022. Cholesterol 170, triglycerides 158, HDL 52, LDL 93 with ratio 3.3 on 01/31/2024. Neoplasm of skin Obstructive sleep apnea failure on CPAP due to headache. Hemoglobin 15.1, hematocrit 45.5 on 09/19/2022. Overweight (BMI 25.0-29.9) Pain, joint, hand, left pain base of left thumb Renal cyst, acquired, right (~09/11/22) 6 cm parapelvic right renal cyst with no evidence of hydronephrosis on 09/11/2022. Right inguinal hernia surgical repair Screening for lung cancer Seborrheic keratosis Serous otitis media Sleep apnea Tobacco use disorder, continuous patient quit smoking on 09/14/2022. Surgical History Surgical History H/O adenoidectomy (~1964) H/O vein stripping (~2009) right leg Hx of inguinal hernia repair robotic assisted right inguinal hernia repair with mesh, lysis of adhesions of approximately 30 minutes on 03/14/23 Hx of tonsillectomy (~1964) Status post Mohs surgery (~2005) tip of nose Family History Family History Mother Heart disease GERD (gastroesophageal reflux disease) Acute myocardial infarction Father Asthma Heart disease Emphysema of lung Acute myocardial infarction Sibling Heart disease Asthma Migraines Social History Social History Smoking packs per day: 1 Smoking cigarettes per day: 20.0 Years smoked: 35 Smoking pack-years: 35.00 Smoking status: Former smoker Tobacco type: cigarettes Smoking end date: 09/14/22 Alcohol intake: never Substance use: never Substance use type: does not use Lack of Transportation: No Lack of Food: Never True Current Housing: I Have Housing Concerned About Future Housing: No Difficulty Paying Gas/Electric Bills: No Difficulty Paying for Meds: No Currently Unemployed: No Education: Associate Degree Difficulty w/ Childcare or Family Care: No Living arrangements: alone Spiritual care concerns: No Anes - Eval Final PreProcedure Day of Procedure 03/03/24 08:17 Patient weight: overweight Heart: regular rate and rhythm Lungs: clear to auscultation Airway: Mallampati scale class II Neurological: alert and oriented Last oral intake: >/= 8 hours ASA classification: III Emergent: no Anesthetic plan: proceed Anesthesia type and monitoring: general GIVS and standard monitoring Results Review: All pre-operative results and documents have been reviewed as part of the pre-operative evaluation. Informed Consent: The patient's anesthetic plan and its attendant risks and benefits were discussed with the patient/family/POA. Questions were solicited and answers provided to the satisfaction of the patient/family/POA.
--- NOTE | 2024-03-03 08:38 | PM.IMHP ---
H&P: HPI History of Present Illness Date/Time: 03/03/24 08:38 Chief Complaint: Screening colonoscopy Narrative: This is the patient's 2nd colonoscopy. her last colonoscopy was in 2010. There are no GI symptoms and there is no family history of colorectal cancer. [facility] Past Medical History Medical History Abnormal CT scan (~08/2022) Adult BMI 25.0-25.9 kg/sq m Arthritis BMI 26.0-26.9,adult BMI 27.0-27.9,adult Breast cancer screening by mammogram normal mammogram 12/28/2022. normal mammogram 01/24/2024. Bronchitis Carpal tunnel syndrome on both sides Chronic constipation Chronic right shoulder pain Colon cancer screening patient reports normal exam 2010. Cough Chest x-ray on 04/17/2022 with mild discoid atelectasis right lower lobe otherwise normal Depression Encounter for surgical aftercare following surgery on the skin and subcutaneous tissue Encounter for wellness examination in adult Exertional chest pain Exercise stress test normal on 08/01/2023. GERD (gastroesophageal reflux disease) Hernia History of ectopic (~1990) Hydronephrosis of right kidney CT of the abdomen on 09/11/2022 reveals a 6 cm parapelvic cyst of the right kidney with no evidence of hydronephrosis. Fat containing right inguinal hernia. Menopausal symptoms Mixed hyperlipidemia Total cholesterol 205, triglycerides 144, HDL 56, LDL 123 with ratio 3.7 on 09/19/2022. Cholesterol 170, triglycerides 158, HDL 52, LDL 93 with ratio 3.3 on 01/31/2024. Neoplasm of skin Obstructive sleep apnea failure on CPAP due to headache. Hemoglobin 15.1, hematocrit 45.5 on 09/19/2022. Overweight (BMI 25.0-29.9) Pain, joint, hand, left pain base of left thumb Renal cyst, acquired, right (~09/11/22) 6 cm parapelvic right renal cyst with no evidence of hydronephrosis on 09/11/2022. Right inguinal hernia surgical repair Screening for lung cancer Seborrheic keratosis Serous otitis media Sleep apnea Tobacco use disorder, continuous patient quit smoking on 09/14/2022. Surgical History Surgical History H/O adenoidectomy (~1964) H/O vein stripping (~2009) right leg Hx of inguinal hernia repair robotic assisted right inguinal hernia repair with mesh, lysis of adhesions of approximately 30 minutes on 03/14/23 Hx of tonsillectomy (~1964) Status post Mohs surgery (~2005) tip of nose Family History Family History Mother Heart disease GERD (gastroesophageal reflux disease) Acute myocardial infarction Father Asthma Heart disease Emphysema of lung Acute myocardial infarction Sibling Heart disease Asthma Migraines Social History Social History Smoking packs per day: 1 Smoking cigarettes per day: 20.0 Years smoked: 35 Smoking pack-years: 35.00 Smoking status: Former smoker Tobacco type: cigarettes Smoking end date: 09/14/22 Alcohol intake: never Substance use: never Substance use type: does not use Lack of Transportation: No Lack of Food: Never True Current Housing: I Have Housing Concerned About Future Housing: No Difficulty Paying Gas/Electric Bills: No Difficulty Paying for Meds: No Currently Unemployed: No Education: Associate Degree Difficulty w/ Childcare or Family Care: No Living arrangements: alone Spiritual care concerns: No Meds Home Medications and Allergies Home Medications Medication Instructions Recorded Confirmed Type vitamin B complex 1 tablet PO DAILY 09/22/22 03/03/24 History meloxicam 15 mg tablet 15 mg PO DAILY PRN pain #90 tabs 07/12/23 03/03/24 Rx simvastatin 40 mg tablet 40 mg PO DAILY #90 tabs 09/25/23 03/03/24 Rx omeprazole 40 mg capsule,delayed 40 mg PO DAILY #90 caps 10/22/23 03/03/24 Rx release venlafaxine 75 mg capsule,extended 75 mg PO QAM #90 caps 02/07/24 03/03/24 Rx release 24 hr (Effexor XR) Allergies Allergy/AdvReac Type Severity Reaction Status Date / Time codeine Allergy Mild NAUSEA Verified 03/03/24 07:46 Vital Signs Vital Signs - 24 hr 03/03/24 07:38 Temperature 96.8 F L Pulse Rate 91 Respiratory Rate 18 Blood Pressure 128/82 Pulse Oximetry 97 Oxygen Delivery Room Air Assessment and Plan Assessment and plan (1) Colon cancer screening: Code(s): Z12.11 - Encounter for screening for malignant neoplasm of colon Status: Acute Assessment and Plan: The patient is deemed a good candidate for the procedure. Consent signed. Will proceed.
[2024-03-03 09:09] VITALS: BP 104/71; PULSE 93; RESP 20; O2SAT 96
[2024-03-03 09:19] VITALS: BP 114/74; PULSE 88; RESP 19; O2SAT 96
[2024-03-03 09:29] VITALS: BP 119/78; PULSE 72; RESP 16; O2SAT 94
== END 2024-03-03 09:39 | disposition home or self-care (01) ==
PROVIDERS: PCP Family Medicine; Visit Provider Internal Medicine Gastroenterology
PROC: 0DJD8ZZ Inspection of Lower Intestinal Tract, Via Natural or Artificial Opening Endoscopic (ICD-10-PCS; CPT 45378; principal; 2024-03-03 09:00)
DX: Z12.11 Encounter for screening for malignant neoplasm of colon (principal); K64.1 Second degree hemorrhoids; K59.09 Other constipation; E78.2 Mixed hyperlipidemia; F32.A Depression, unspecified; K21.9 Gastro-esophageal reflux disease without esophagitis; G47.33 Obstructive sleep apnea (adult) (pediatric); G56.03 Carpal tunnel syndrome, bilateral upper limbs; G89.29 Other chronic pain; M25.511 Pain in right shoulder; Z98.890 Other specified postprocedural states; Z87.891 Personal history of nicotine dependence; Z82.49 Family history of ischemic heart disease and other diseases of the circulatory system
CPT/HCPCS: 45378; J2003; J2704; J7120

== ENCOUNTER 2025-02-18 12:16 | Emergency (ER) | payer OTHER, SELFPAY ==
--- NOTE | ~2025-02-18 | XR_ITS ---
EXAMINATION: XR chest 2V, 02/18/2025 13:00 CDT HISTORY: chest pain COMPARISON: No comparisons available. Technique: 2 views obtained. Findings: The lungs are clear, no effusion. No pneumothorax. Heart is normal size. Mediastinal and hilar contours are within normal limits. Bony thorax no acute abnormality. Impression: No acute cardiopulmonary abnormality. Reviewed, dictated and finalized at location P. Impression: No acute cardiopulmonary abnormality.
--- NOTE | 2025-02-18 12:17 | ECG_ITS ---
Test Date: 2025-02-18 12:21:35 Measurements Intervals [place] Rate: 73 P: 40 VA: 129 QRS: -7 QRSD: 100 T: 71 QT: 386 QTc: 428 Interpretive Statements SINUS RHYTHM LEFT VENTRICULAR HYPERTROPHY AND ST-T CHANGE MINIMAL Q WAVES- HIGH LATERAL LEADS CANNOT R/O SEPTAL INFARCT, AGE INDETERMINATE BORDERLINE ST ABNORMALITY- INFERIOR LEADS BASELINE ARTIFACT- I, II, III, AVR, AVL, AVF ABNORMAL ECG No previous ECG available for comparison Electronically Signed On 02-18-2025 12:51:22 CDT by Ugo Callejas D.O.
[2025-02-18 12:19] VITALS: BP 140/85; PULSE 73; RESP 16; TEMP 36.5; O2SAT 97
[2025-02-18 12:34] LABS: Hematocrit 47.5 % (37.0-47.0); Hemoglobin 15.7 g/dL (12.0-15.0); Immature Granulocyte Percent A 0.6 % (0-0.5); Lymphocytes Absolute Auto 1.71 K/mm3 (0.9-3.2); Mean Corpuscular HGB Conc 33.1 g/dl (32-36); Mean Corpuscular Hemoglobin 30.4 pg (26-34); Mean Corpuscular Volume 92.1 fl (80-100); Nucleated Red Blood Cells Absolute Auto 0.000 K/mm3 (0.0-0.012); Nucleated Red Blood Cells Perc 0.0 % (0.0-0.2); Platelet Count Result 258 k/mm3 (150-375); Red Blood Count 5.16 M/mm3 (4.2-5.4); White Blood Count 10.0 K/mm3 (4.5-10.0)
[2025-02-18 12:45] LABS: INR 0.9; Partial Thromboplastin Time 25.1 Seconds (22.3-36.8); Prothrombin Time 12.7 Seconds (11.1-14.7)
[2025-02-18 12:46] LABS: Alanine Aminotransferase 23 U/L (6-35); Albumin Level 4.9 g/dL (3.5-5.1); Alkaline Phosphatase 60 U/L (38-126); Anion Gap 9 mmol/L (4-12); Aspartate Amino Transferase 25 U/L (14-36); Bilirubin,Total 0.4 mg/dL (0.2-1.3); Blood Urea Nitrogen 19 mg/dL (7-17); Calcium 9.7 mg/dL (8.4-10.2); Carbon Dioxide 34 mmol/L (22-30); Chloride 97 mmol/L (98-107); Estimated CRCL calculation 66 ml/min; Estimated Glomerular Filt Rate > 60; Glucose 109 mg/dL (65-110); Lipase 52 U/L (23-300); Potassium 3.7 mmol/L (3.4-5.0); Sodium 140 mmol/L (137-145); Total Protein 8.6 g/dL (6.3-8.2)
[2025-02-18 12:57] LABS: Troponin I < 0.012 ng/mL (0.000-0.034)
--- NOTE | 2025-02-18 13:15 | ED.CHESTPAIN ---
HPI - Chest Pain General Chief Complaint: Chest Pain <Summer Vega PA-C - Last Filed: 02/18/25 17:41> Stated Complaint: multiple complaints <Summer Vega PA-C - Last Filed: 02/18/25 17:41> Time Seen by Provider: 02/18/25 13:15 <Summer Vega PA-C - Last Filed: 02/18/25 17:41> Focused HPI: This is a 64 year old female that presents to the ER for chest pain, back pain. Reports tingling in her arms. Ache in her neck. Reports dizziness. Reports this has been going on over the last 4 days. GENERAL: Well-appearing, well-nourished, and in no acute distress. HEAD: Normocephalic, atraumatic. CHEST: Clear to auscultation. ?No respiratory distress. HEART: Regular rate and rhythm.? NEURO: ?Alert and oriented x3. Patient screened in triage and initial orders placed.? ?Additional care and disposition to be based upon?diagnostic testing and treatment. <Summer Vega PA-C - Last Filed: 02/18/25 17:41> History of Present Illness HPI narrative: 64-year-old female currently being treated with right-sided upper extremity radicular symptoms with meth prednisolone presenting for multiple complaints. She started the medications 4 days ago. Three days ago she developed an achy heaviness in her chest that only occurred at night. It resolved in the morning but then reoccurred the following night and radiated to her back. It is not associated with exertion diaphoresis or vomiting. She has also been having hot flashes and episodes of tingling in both hands. Patient is concerned she may be having a heart attack as females present with atypical symptoms. <Hebert Whitmore MD - Last Filed: 02/18/25 16:58> Related Data Home Medications: Home Medications ?Medication ?Instructions ?Recorded ?Confirmed ?Last Taken ?Type vitamin B complex 1 tablet PO DAILY 09/22/22 02/13/25 03/01/24 History <Summer Vega PA-C - Last Filed: 02/18/25 17:41> Allergies/Adverse Reactions: Allergies Allergy/AdvReac Type Severity Reaction Status Date / Time codeine Allergy Mild NAUSEA Verified 02/13/25 07:02 <Summer Vega PA-C - Last Filed: 02/18/25 17:41> Review of Systems Review of Systems: All systems reviewed & are unremarkable except as noted in HPI and below <Summer Vega PA-C - Last Filed: 02/18/25 17:41> [facility] Past Medical History Medical History: Medical History Colon cancer screening patient reports normal exam 2010. normal colonoscopy 03/03/2024 with hemorrhoids. Recheck in 10 years. Seborrheic keratosis BMI 27.0-27.9,adult Exertional chest pain Exercise stress test normal on 08/01/2023. Serous otitis media Encounter for surgical aftercare following surgery on the skin and subcutaneous tissue BMI 26.0-26.9,adult Carpal tunnel syndrome on both sides Pain, joint, hand, left pain base of left thumb Breast cancer screening by mammogram normal mammogram 12/28/2022. normal mammogram 01/24/2024. Right inguinal hernia surgical repair Hernia Renal cyst, acquired, right (~09/11/22) 6 cm parapelvic right renal cyst with no evidence of hydronephrosis on 09/11/2022. Abnormal CT scan (~08/2022) Hydronephrosis of right kidney CT of the abdomen on 09/11/2022 reveals a 6 cm parapelvic cyst of the right kidney with no evidence of hydronephrosis. Fat containing right inguinal hernia. Screening for lung cancer Depression Bronchitis Obstructive sleep apnea failure on CPAP due to headache. Hemoglobin 15.1, hematocrit 45.5 on 09/19/2022. Chronic constipation Overweight (BMI 25.0-29.9) Adult BMI 25.0-25.9 kg/sq m Cough Chest x-ray on 04/17/2022 with mild discoid atelectasis right lower lobe otherwise normal Neoplasm of skin Tobacco use disorder, continuous patient quit smoking on 09/14/2022. Mixed hyperlipidemia Total cholesterol 205, triglycerides 144, HDL 56, LDL 123 with ratio 3.7 on 09/19/2022. Cholesterol 170, triglycerides 158, HDL 52, LDL 93 with ratio 3.3 on 01/31/2024. Menopausal symptoms Chronic right shoulder pain Encounter for wellness examination in adult History of ectopic (~1990) GERD (gastroesophageal reflux disease) Arthritis Sleep apnea <Summer Vega PA-C - Last Filed: 02/18/25 17:41> Surgical History Surgical History: Surgical History Hx of inguinal hernia repair robotic assisted right inguinal hernia repair with mesh, lysis of adhesions of approximately 30 minutes on 03/14/23 Status post Mohs surgery (~2005) tip of nose H/O vein stripping (~2009) right leg H/O adenoidectomy (~1964) Hx of tonsillectomy (~1964) <Summer Vega PA-C - Last Filed: 02/18/25 17:41> Family History Family History: Family History Mother Heart disease GERD (gastroesophageal reflux disease) Acute myocardial infarction Father Asthma Heart disease Emphysema of lung Acute myocardial infarction Sibling Heart disease Asthma Migraines <Summer Vega PA-C - Last Filed: 02/18/25 17:41> Social History Social History: Social History (Updated 02/13/25 @ 09:14 by Analy Arriaza CMA) Smoking packs per day: 1 Smoking cigarettes per day: 20.0 Years smoked: 35 Smoking pack-years: 35.00 Smoking status: Current every day smoker Tobacco type: cigarettes and e-cigarettes/vaping Alcohol intake: never Substance use: never Substance use type: does not use Do You Feel Safe in your Home?: Yes Lack of Transportation: No Lack of Food: Never True Current Housing: I Have Housing Concerned About Future Housing: No Difficulty Paying Gas/Electric Bills: No Difficulty Paying for Meds: No Currently Unemployed: No Education: Associate Degree Difficulty w/ Childcare or Family Care: No Living arrangements: alone Spiritual care concerns: No <SEVEN Strange Last Filed: 02/18/25 17:41> Exam Narrative: APPEARANCE: No apparent distress. Head: atraumatic. EYES: EOMI, NOSE: Atraumatic NECK: Trachea midline RESPIRATORY: No increased rate of breathing clear to auscultation CARDIOVASCULAR: RRR, no peripheral edema ABDOMINAL: Non-distended soft nontender MUSCULOSKELETAl: No obvious deformities NEURO: Alert. Cranial nerves 2-12 grossly intact. Sensation light touch, motor function cerebellar function intact for 4 extremities. Gait exam was normal. SKIN:: Warm, dry. Normal color PSYCHIATRIC: Normal affect <Hebert Whitmore MD - Last Filed: 02/18/25 16:58> Course Vital Signs Vital signs: Vital Signs Temperature 97.7 F 02/18/25 12:19 Pulse Rate 73 02/18/25 12:19 Respiratory Rate 16 02/18/25 12:19 Blood Pressure 140/85 02/18/25 12:19 Pulse Oximetry 97 02/18/25 12:19 Oxygen Delivery Room Air 02/18/25 12:19 Temperature 97.7 F 02/18/25 12:19 Pulse Rate 74 02/18/25 17:00 Respiratory Rate 16 02/18/25 17:00 Blood Pressure 131/92 H 02/18/25 16:00 Pulse Oximetry 95 02/18/25 17:00 Oxygen Delivery Room Air 02/18/25 12:19 <Summer Vega PA-C - Last Filed: 02/18/25 17:41> Vital Signs Temperature 97.7 F 02/18/25 12:19 Pulse Rate 73 02/18/25 12:19 Respiratory Rate 16 02/18/25 12:19 Blood Pressure 140/85 02/18/25 12:19 Pulse Oximetry 97 02/18/25 12:19 Oxygen Delivery Room Air 02/18/25 12:19 Temperature 97.7 F 02/18/25 12:19 Pulse Rate 74 02/18/25 17:00 Respiratory Rate 16 02/18/25 17:00 Blood Pressure 131/92 H 02/18/25 16:00 Pulse Oximetry 95 02/18/25 17:00 Oxygen Delivery Room Air 02/18/25 12:19 <Hebert Whitmore MD - Last Filed: 02/18/25 16:58> MDM - Chest Pain MDM Narrative Medical decision making narrative: -Course: This is a 64-year-old female presenting multiple complaints. Patient has had multiple strange symptoms since starting her on Medrol Dosepak including dizziness, chest pain and tingling in her hands. She was sent in by her primary care office because of concerns for [place] due to the chest pain and tingling in the hands. Her chest pain workup here was unremarkable. Her EKG shows normal sinus rhythm with 2- troponins. The rest her laboratory studies were within normal limits under chest x-ray is clear. Patient was informed of the results. Unclear etiology recurrent symptoms although steroids, multiple side effects that may be influencing patient's condition. Patient will be discharged to follow-up with her primary care physician for further management. Given return precautions for any new or worsening symptoms including chest pain fevers or shortness of breath. -DDX includes but is not limited to: ACS medication side effect, viral syndrome, peripheral neuropathy, pneumonia, <Hebert Whitmore MD - Last Filed: 02/18/25 16:58> Lab Data Result diagrams: 02/18/25 12:28 02/18/25 12:28 <Summer Vega PA-C - Last Filed: 02/18/25 17:41> Labs: Lab Results 02/18/25 02/18/25 02/18/25 Range/Units 12:28 15:18 15:22 WBC 10.0 (4.5-10.0) K/mm3 RBC 5.16 (4.2-5.4) M/mm3 Hgb 15.7 H (12.0-15.0) g/dL Hct 47.5 H (37.0-47.0) % MCV 92.1 (80-100) fl MCH 30.4 (26-34) pg MCHC 33.1 (32-36) g/dl RDW 13.1 (11.5-14.5) % Plt Count 258 (150-375) k/mm3 MPV 9.4 (7.4-10.4) fl Immature Gran % (Auto) 0.6 H (0-0.5) % Neut % (Auto) 75.4 H (45.5-73.1) % Lymph % (Auto) 17.1 L (18.3-44.2) % [place] % (Auto) 6.3 (2.6-8.5) % Eos % (Auto) 0.3 (0-4.4) % Baso % (Auto) 0.3 (0.2-1.2) % Lymph # (Auto) 1.71 (0.9-3.2) K/mm3 [place] # (Auto) 0.6 (0.1-0.6) K/mm3 Eos # (Auto) 0.0 (0-0.3) K/mm3 Baso # (Auto) 0.0 (0.0-0.1) K/mm3 Abs Immat Gran (auto) 0.06 H (0.00-0.031) K/mm3 Absolute Neuts (auto) 7.5 H (1.3-6.7) K/mm3 Absolute Nucleated RBC 0.000 (0.0-0.012) K/mm3 Nucleated RBC % 0.0 (0.0-0.2) % PT 12.7 (11.1-14.7) Seconds INR 0.9 APTT 25.1 (22.3-36.8) Seconds Sodium 140 (137-145) mmol/L Potassium 3.7 (3.4-5.0) mmol/L Chloride 97 L (98-107) mmol/L Carbon Dioxide 34 H (22-30) mmol/L Anion Gap 9 (4-12) mmol/L BUN 19 H (7-17) mg/dL Creatinine 0.72 (0.7-1.0) mg/dL Estim Creat Clear Calc 66 ml/min Estimated GFR > 60 (59 - ) Glucose 109 (65-110) mg/dL Calcium 9.7 (8.4-10.2) mg/dL Total Bilirubin 0.4 (0.2-1.3) mg/dL AST 25 (14-36) U/L ALT 23 (6-35) U/L Alkaline Phosphatase 60 (38-126) U/L Troponin I < 0.012 < 0.012 (0.000-0.034) ng/mL Total Protein 8.6 H (6.3-8.2) g/dL Albumin 4.9 (3.5-5.1) g/dL Lipase 52 (23-300) U/L Influenza A (RT-PCR) Negative (Negative) Influenza B (RT-PCR) Negative (Negative) RSV (RT-PCR) Negative (Negative) SARS-CoV-2 RNA (RT-PCR) Negative (Negative) <Summer Vega PA-C - Last Filed: 02/18/25 17:41> Lab Results 02/18/25 02/18/25 02/18/25 Range/Units 12:28 15:18 15:22 WBC 10.0 (4.5-10.0) K/mm3 RBC 5.16 (4.2-5.4) M/mm3 Hgb 15.7 H (12.0-15.0) g/dL Hct 47.5 H (37.0-47.0) % MCV 92.1 (80-100) fl MCH 30.4 (26-34) pg MCHC 33.1 (32-36) g/dl RDW 13.1 (11.5-14.5) % Plt Count 258 (150-375) k/mm3 MPV 9.4 (7.4-10.4) fl Immature Gran % (Auto) 0.6 H (0-0.5) % Neut % (Auto) 75.4 H (45.5-73.1) % Lymph % (Auto) 17.1 L (18.3-44.2) % [place] % (Auto) 6.3 (2.6-8.5) % Eos % (Auto) 0.3 (0-4.4) % Baso % (Auto) 0.3 (0.2-1.2) % Lymph # (Auto) 1.71 (0.9-3.2) K/mm3 [place] # (Auto) 0.6 (0.1-0.6) K/mm3 Eos # (Auto) 0.0 (0-0.3) K/mm3 Baso # (Auto) 0.0 (0.0-0.1) K/mm3 Abs Immat Gran (auto) 0.06 H (0.00-0.031) K/mm3 Absolute Neuts (auto) 7.5 H (1.3-6.7) K/mm3 Absolute Nucleated RBC 0.000 (0.0-0.012) K/mm3 Nucleated RBC % 0.0 (0.0-0.2) % PT 12.7 (11.1-14.7) Seconds INR 0.9 APTT 25.1 (22.3-36.8) Seconds Sodium 140 (137-145) mmol/L Potassium 3.7 (3.4-5.0) mmol/L Chloride 97 L (98-107) mmol/L Carbon Dioxide 34 H (22-30) mmol/L Anion Gap 9 (4-12) mmol/L BUN 19 H (7-17) mg/dL Creatinine 0.72 (0.7-1.0) mg/dL Estim Creat Clear Calc 66 ml/min Estimated GFR > 60 (59 - ) Glucose 109 (65-110) mg/dL Calcium 9.7 (8.4-10.2) mg/dL Total Bilirubin 0.4 (0.2-1.3) mg/dL AST 25 (14-36) U/L ALT 23 (6-35) U/L Alkaline Phosphatase 60 (38-126) U/L Troponin I < 0.012 < 0.012 (0.000-0.034) ng/mL Total Protein 8.6 H (6.3-8.2) g/dL Albumin 4.9 (3.5-5.1) g/dL Lipase 52 (23-300) U/L Influenza A (RT-PCR) Negative (Negative) Influenza B (RT-PCR) Negative (Negative) RSV (RT-PCR) Negative (Negative) SARS-CoV-2 RNA (RT-PCR) Negative (Negative) <Hebert Whitmore MD - Last Filed: 02/18/25 16:58> Discharge Plan Discharge Clinical Impression: Chest pain Qualifiers: Chest pain type: unspecified Qualified Code(s): R07.9 - Chest pain, unspecified <Summer Vega PA-C - Last Filed: 02/18/25 17:41> Patient Disposition: Home <Summer Vega PA-C - Last Filed: 02/18/25 17:41> Condition: Stable <Summer Vega PA-C - Last Filed: 02/18/25 17:41> Instructions: Antibiotic Form, Chest Pain (ED) <Summer Vega PA-C - Last Filed: 02/18/25 17:41> Additional Instructions: You were seen emergency department for chest discomfort. Your workup here was negative for a heart attack. We did not find an etiology of your symptoms. Please follow-up your primary care physician at your appointment tomorrow. If you develop any new or worsening symptoms he can return to the ED for re-evaluation. <Summer Vega PA-C - Last Filed: 02/18/25 17:41> Patient Language: Eritrean <Summer Vega PA-C - Last Filed: 02/18/25 17:41> Prescriptions: No Action methylprednisolone [Medrol ([place])] 4 mg tablets,dose pack See Rx Instructions PO PER PKG DIR Qty: 1 0RF Rx Instructions: PO PER PKG DIR for 6 days Hold meloxicam until Medrol finished vitamin B complex Tablet 1 tablet PO DAILY venlafaxine [Effexor XR] 75 mg capsule,extended release 24hr 75 mg PO QAM Qty: 90 3RF simvastatin 40 mg tablet 40 mg PO DAILY Qty: 90 3RF omeprazole 40 mg capsule,delayed release(DR/EC) 40 mg PO DAILY Qty: 90 3RF meloxicam 15 mg tablet 15 mg PO DAILY PRN (Reason: pain) Qty: 90 3RF <Summer Vega PA-C - Last Filed: 02/18/25 17:41> Follow-up/Referrals: Vicente Akers MD [Primary Care Provider, Family Practice] <Summer Vega PA-C - Last Filed: 02/18/25 17:41>
[2025-02-18 14:20] VITALS: PULSE 64
[2025-02-18 15:00] VITALS: BP 128/78; PULSE 54; RESP 18; O2SAT 98
[2025-02-18] MEDS: ASPIRIN 81 MG CHEWABLE TABLET 324 MG PO (15:06)
--- NOTE | 2025-02-18 15:17 | ECG_ITS ---
Test Date: 2025-02-18 15:27:19 Measurements Intervals [place] Rate: 52 P: 52 VT: 132 QRS: 5 QRSD: 89 T: 42 QT: 424 QTc: 397 Interpretive Statements SINUS BRADYCARDIA WITH SINUS ARRHYTHMIA VOLTAGE CRITERIA FOR LVH MINIMAL Q WAVES- HIGH LATERAL LEADS NONSPECIFIC T-WAVE ABNORMALITY- INFERIOR LEADS BORDERLINE ECG Compared to ECG 02/18/2025 12:21:35 HEART RATE HAS DECREASED Electronically Signed On 02-18-2025 15:39:52 CDT by Ugo Callejas D.O.
--- OUTSIDE RECORDS SUMMARY | 2025-02-18 15:24 | XMS_ITS | Clinical Summary ---
Author Organization [facility] Address [address] [place] [address] Care Team Providers Care Quality Assurance Specialist Name Role Phone Vicente Akers MD Primary Care Provider [phone] Source Comments [facility] [employer],non-owned Affiliates and Associated Physician Practices is amultiple site organization consisting of ambulatory clinics and hospital sitesin [place], [place], [place] and [place]. This disclosure is being madepursuant to the Care Everywhere program and may not contain all information available regarding this patient. Last updated 18.[facility] [employer] Allergies Active Allergy Reactions Criticality Noted Date Comments Codeine Vomiting 02/09/2019 Immunizations Immunization Administration Dates Next Due INFLUENZA VACCINE, QUADR. 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 Gender Identity Not on file Sexual Orientation Not on file Plan of Treatment Health Maintenance Due Date Last Done Comments COLOGUARD (AGES 45-75) - COL ON CA SCREENING 1960 COLON MONITORING 1960 COLONOSCOPY - COLON CA SCREENING 1960 CT COLONOGRAPHY - COLON CA SCREENING 1960 Colorectal Cancer Screening 1960 FIT - COLON CA SCREENING 1960 FLEX SIG - COLON CA SCREENING 1960 LIPID TESTING 1960 MAMMOGRAM 1960 HIV SCREENING 08/11/1975 HEPATITIS C SCREENING 08/06/1978 DTAP/TDAP/TD VACCINES (1 - Tdap) 08/11/1979 PNEUMOCOCCAL VACCINE 50+ (1 of 1 - PCV) 2010 ZOSTER VACCINE (1 of 2) 2010 DEPRESSION SCREENING 04/30/2024 COVID-19 VACCINE (1 - 2023-2 5 season) 2024 INFLUENZA VACCINE (#1) 2024 02/09/2019 Respiratory Syncytial Virus (RSV) Vaccine Pt: or over 60 yrs (1 - 1-dose 75+ series) 08/11/2035 HEPATITIS B VACCINE Aged Out No longe r eligible based on patient's age to complete this topic HIB VACCINE Aged Out No longer eligi ble based on patient's age to complete this topic HPV VACCINE Aged Out No longer eligi ble based on patient's age to complete this topic MENINGOCOCCAL (Group B) VACC INE SHARED DECISION-MAKING Aged Out No longer eligibl e based on patient's age to complete this topic MENINGOCOCCAL GROUPS A/C/Y/W VACCINE Aged Out No longer eligible b ased on patient's age to complete this topic Insurance [facility] [place] [address] Care Teams Quality Assurance Specialist Relationship Specialty Start Date End Date Vicente Akers MD PCP - General Family Medicine 02/09/19
--- OUTSIDE RECORDS SUMMARY | 2025-02-18 15:24 | XMS_ITS | Encounter Summary ---
Author Organization [facility] Address [address] [place] [address] Care Team Providers Care Innov[employer] Paraprofessional Name Role Phone Vicente Akers MD Primary Care Provider [phone] Encounter Details Date Type Department Care Team (Late st Contact Info) Description 11/18/2021 Lab Requisition [facility] [address] [place] [address] Sander Gil MD [address] [place] [address] Social History Tobacco Use Types Packs/Day Years Used Date Smoking Tobacco: Never Assessed Comments Unknown Sex and Gender Information Value Date Recorded Sex Assigned at Not on file 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 Gender Identity Not on file Sexual Orientation Not on file documented as of this encounter Plan of Treatment Not on file documented as of this encounter Procedures Procedure Name Priority Date/Time Associated Diagnosis Comments DERMATOPATHOLOGY Routine 11/16/2021 12:0 0 AM CDT documented in this encounter Results * DERMATOPATHOLOGY (11/16/2021 12:00 AM CDT) Case Report Dermatopathology Report Case: [id number] Authorizing Provider: Sander Gil MD Collected: 11/16/2021 12:00 AM Ordering Location: [facility] Received: 11/18/2021 07:34 AM Pathologist: Priscilla Shane MD Specimen: Skin, left nasal tip 2 3:18 PM CDT DERMATOPATHOLOGY LABORATORY Final Diagnosis Specimen A. SKIN, left nasal tip: DERMAL FIBROSIS (L90.5) (see microscopic description) 2 3:18 PM CDT DERMATOPATHOLOGY LABORATORY at 1518 CDT Clinical History Recurring BCC vs. Other. Path# [id number] 2 3:18 PM CDT DERMATOPATHOLOGY LABORATORY Gross Description Specimen A: Received is one formalin filled container labeled with the patient's name and designated left nasal tip. The specimen consists of a shave biopsy measuring [id number]. Jar 0. 2 3:18 PM CDT DERMATOPATHOLOGY LABORATORY Microscopic Description Specimen A. SKIN, left nasal tip: The epidermis is unremarkable. There is focal dermal fibrosis. Tumor is not present in the sections examined. Additional deeper sections were obtained and reviewed. 2 3:18 PM CDT DERMATOPATHOLOGY LABORATORY Disclaimer An external and internal positive and negative controls are appropriate for the histochemical, immunohistochemical and immunofluorescence stain(s) in this case (if any), except where stated explicitly. The performance characteristics of the stain(s) cited in this report were developed and its performance characteristic determined by the Dermatopathology Laboratory at [facility], directed by Dr. Kell Shane. These tests need not be, and therefore are not, approved by the [place] Food and Drug Administration. The tests are used for clinical purposes. Billing Codes Specimen Charges Stain Charges 58744 1 2 3:18 PM CDT DERMATOPATHOLOGY LABORATORY Embedded Images 2 3:18 PM CDT DERMATOPATHOLOGY LABORATORY Pathology/Cytolog y TISSUE SPECIMEN FROM SKIN / Unknown 11/16/2021 11/18/2021 7:34 AM CDT us Sander Gil MD LAB - PATHOLOGY/CYTOLOGY ORDER FANG Final Result DERMATOPATHOLOGY LABORATORY [facility] - Department of Dermatology [address], [address] [phone] documented in this encounter Visit Diagnoses Not on filedocumented in this encounter Care Teams Innovations Paraprofessional Relationship Specialty Start Date End Date Vicente Akers MD PCP - General Family Medicine 02/09/19 documented as of this encounter
--- OUTSIDE RECORDS SUMMARY | 2025-02-18 15:24 | XMS_ITS | Clinical Summary ---
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 Gender Identity Not on file Sexual Orientation Not on file Plan of Treatment Health Maintenance Due Date Last Done Comments DTAP/TDAP/TD VACCINES (1 - Tdap) 08/11/1979 HPV/Cotest (21-29) 1981 CERVICAL CANCER SCREENING 1990 HPV/Cotest (30-65) 1990 PAP SMEAR 1990 BREAST CANCER SCREENING 2000 COLORECTAL SCREENING 2005 Colorectal Cancer Screening 2005 FIT-DNA Q 3 years 2005 FIT/FOBT Q 1 year 2005 Flex Sig/CT Colonography Q 5 years 2005 ZOSTER VACCINE (1 of 2) 2010 INFLUENZA VACCINE (#1) 2024 RSV VACCINE (60+ or ) (1 - 1-dose 75+ series) 08/11/2035 Care Teams Client Services Analyst Relationship Specialty Start Date End Date [facility], External Provider [address] [place] [address] PCP - General 07/09/09
--- OUTSIDE RECORDS SUMMARY | 2025-02-18 15:25 | XMS_ITS | Clinical Summary ---
Author Organization [facility] Address [address], [address] [address] Phone Care Team Providers Care Centrifuge Separator Operator Name Role Phone Vicente Akers MD Primary Care Provider Allergies Active Allergy Reactions Criticality Noted Date Comments Codeine Nausea 06/01/2016 Medications simvastatin (ZOCOR) 20 MG Tablet Take 20 mg by mouth every evening. Active venlafaxine (EFFEXOR) 75 MG Tablet Take 75 mg by mouth daily. Active Omeprazole 20 MG Tablet Delayed Response Take 1 Tab by mouth daily. Active Polyethylene Glycol 3350 (MIRALAX PO) Take by mouth nightly. Active Multiple Vitamins-Mineral s (MULTIVITAMIN PO) Take 1 Tab by mouth daily. Active BIOTIN PO Take 1 Tab by mouth daily. Active Calcium Carb-Cholecalcif kevin (CALCIUM 600 + D PO) Take 1 Tab by mouth daily. Active Biotin w/ Vitamins C & E (HAIR SKIN & NAILS GUMMIES PO) Take 1 Tab by mouth daily. Active ACETAMINOPHEN PO Take by mouth. Active Family History Medical History Relation Name Comments Emphysema Father Heart Attack Father Breast Cancer Maternal Aunt Heart Disease Mother Relation Name Status Comments Father Maternal Aunt Mother Social History Tobacco Use Types Packs/Day Years Used Date Smoking Tobacco: Former Cigarettes 1 30 0 01/24/1986 - 01/25/2016 Comments:stopped 2015 Alcohol Use Standard Drinks/Week Comments No 0 (1 standard drink = 0.6 oz pur e alcohol) NONE Comments Unknown Sex and Gender Information Value Date Recorded Sex Assigned at Not on file Legal Sex Female 12:14 PM CDT Gender Identity Not on file Sexual Orientation Not on file Occupation Industry Job Start Date Job End Date Works in [employer] Not on file Not on file Not on fi le Last Filed Vital Signs Vital Sign Reading Time Taken Comments Blood Pressure 118/82 12/11/2016 10:35 AM CDT Pulse 63 12/11/2016 9:21 AM CDT Temperature 36 C (96.8 F) 12/11/2016 10:35 AM CDT Respiratory Rate 15 12/11/2016 10:35 AM CDT Oxygen Saturation 97% 12/11/2016 10:35 AM CDT Inhaled Oxygen Concentration - - Weight 76.2 kg (168 lb) 12/11/2016 9:21 AM CDT Height 171.5 cm (5' 7.5) 12/11/2016 9:21 AM CDT Body Mass Index 25.92 12/11/2016 9:21 AM CDT Plan of Treatment Health Maintenance Due Date Last Done Comments Hepatitis C Virus (HCV) Screening 1960 TdaP Immunization 1960 Pap Smear 1981 Cervical Cancer Screening (CCS) 1990 HPV/Cotest 1990 Cologuard 2005 Immunochemical Fecal Occult Blood 2005 Pneumococcal Immunization (5 0+ years) (1 of 1 - PCV) 2010 Zoster Immunization (1 of 2) 2010 Influenza Immunization (#1) 2024 SARS-COV-2 Immunization ( season) 2024 Colonoscopy 06/02/2026 06/02/2016 Colorectal Cancer Screening 06/02/2026 Respiratory Syncytial Virus (RSV) Immunization (Adult) (1 - 1-dose 75+ series) 08/11/2035 Hepatitis B Immunization Aged Out No longer eligible based on patient's age to complete this topic Human Papillomavirus (HPV) Immunization Aged Out No longer eligible b ased on patient's age to complete this topic Meningococcal Immunization (ACWY) Aged Out No longer eligible based on patient's age to complete this topic Rotavirus Immunization Aged Out No lo nger eligible based on patient's age to complete this topic Care Teams Centrifuge Separator Operator Relationship Specialty Start Date End Date Vicente Akers MD [address] [address] PCP - General Family Medicine 02/16/16
[2025-02-18 15:51] LABS: Troponin I < 0.012 ng/mL (0.000-0.034)
[2025-02-18 16:00] VITALS: BP 131/92; PULSE 58; RESP 16; O2SAT 97
[2025-02-18 16:02] LABS: Influenza A QL RT-PCR Negative (Negative); Influenza B QL RT-PCR Negative (Negative); RSV RNA, RT-PCR Negative (Negative); SARS-CoV-2 RNA PCR Negative (Negative)
[2025-02-18 17:00] VITALS: PULSE 74; RESP 16; O2SAT 95
--- OUTSIDE RECORDS SUMMARY | 2025-02-18 19:45 | XMS_ITS | Clinical Summary ---
Author Organization [facility] Address [address], [address] [address] Phone Care Team Providers Care Promotions Firm Accounts Manager Name Role Phone Vicente Akers MD Primary [...] Start Date Job End Date Works in [employer] Not on file Not on file Not [...] age to complete this topic Care Teams Promotions Firm Accounts Manager Relationship Specialty Start Date End Date Vicente Akers MD [address] [address] PCP - General Family Medicine 02/16/16
--- OUTSIDE RECORDS SUMMARY | 2025-02-18 19:45 | XMS_ITS | Clinical Summary ---
Author Organization [facility] Address [address] [place] [address] Care Team Providers Care Supervisor Forming Department Name Role Phone Vicente Akers MD Primary Care Provider Source Comments [facility] [employer],non-owned Affiliates and Associated Physician Practices is amultiple site organization consisting of ambulatory clinics and hospital sitesin [place], [place], [place] and [place]. This disclosure is being madepursuant to the Care Everywhere program and may not contain all information available regarding this patient. 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
--- OUTSIDE RECORDS SUMMARY | 2025-02-18 19:45 | XMS_ITS | Encounter Summary ---
Author Organization [facility] Address [address] [address] Care Team Providers Care Benefits Technician Name Role Phone Vicente Akers MD Primary Care Provider [phone] Encounter Details Date Type Department Care Team (Late st Contact Info) Description 11/18/2021 Lab Requisition [facility] DermPath Lab [address] [place] [address] Sander Gil MD [address] [place] [address] Social History Tobacco Use Types Packs/Day Years Used Date Smoking Tobacco: Never Assessed Comments Unknown Sex and Gender Information Value Date Recorded Sex Assigned at Not on file 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 Gender Identity Not on file Sexual Orientation Not on file documented as of this encounter Plan of Treatment Not on file documented as of this encounter Procedures Procedure Name Priority Date/Time Associated Diagnosis Comments DERMATOPATHOLOGY Routine 11/16/2021 12:0 0 AM CDT documented in this encounter Results * DERMATOPATHOLOGY (11/16/2021 12:00 AM CDT) Case Report Dermatopathology Report Case: [id number] Authorizing Provider: Sander Gil MD Collected: 11/16/2021 12:00 AM Ordering Location: [facility] Derm[facility] Lab Received: 11/18/2021 07:34 AM Pathologist: Priscilla Shane MD Specimen: Skin, left nasal tip 2 3:18 PM CDT DERMATOPATHOLOGY LABORATORY Final Diagnosis Specimen A. SKIN, left nasal tip: DERMAL FIBROSIS (L90.5) (see microscopic description) 2 3:18 PM CDT DERMATOPATHOLOGY LABORATORY at 1518 CDT Clinical History Recurring BCC vs. Other. Path# [id number] 2 3:18 PM CDT DERMATOPATHOLOGY LABORATORY Gross Description Specimen A: Received is one formalin filled container labeled with the patient's name and designated left nasal tip. The specimen consists of a shave biopsy measuring [id number]. Jar 0. 2 3:18 PM CDT DERMATOPATHOLOGY [...] characteristic determined by the Dermatopathology Laboratory at [facility], directed by Dr. Kell Shane. These tests need not be, and therefore are not, approved by the [place] Food and Drug Administration. The tests are used for clinical purposes. Billing Codes Specimen Charges Stain Charges 58674 1 2 3:18 PM CDT DERMATOPATHOLOGY LABORATORY Embedded Images 2 3:18 PM CDT DERMATOPATHOLOGY LABORATORY Pathology/Cytolog y TISSUE SPECIMEN FROM SKIN / Unknown 11/16/2021 11/18/2021 7:34 AM CDT us Sander Gil MD LAB - PATHOLOGY/CYTOLOGY ORDER FANG Final Result DERMATOPATHOLOGY LABORATORY [facility] - Department of Dermatology [address], [address] [phone] documented in this encounter Visit Diagnoses Not on filedocumented in this encounter Care Teams Benefits Technician Relationship Specialty Start Date End Date Vicente Akers MD PCP - General Family Medicine 02/09/19 documented as of this encounter
--- OUTSIDE RECORDS SUMMARY | 2025-02-18 19:45 | XMS_ITS | Clinical Summary ---
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
== END 2025-02-18 17:20 | disposition home or self-care (01) ==
PROVIDERS: Emergency Provider Emergency Medicine; PCP Family Medicine
DX: R07.9 Chest pain, unspecified (principal); Z20.822 Contact with and (suspected) exposure to COVID-19; E78.2 Mixed hyperlipidemia; K21.9 Gastro-esophageal reflux disease without esophagitis; G47.33 Obstructive sleep apnea (adult) (pediatric); M19.90 Unspecified osteoarthritis, unspecified site; F32.A Depression, unspecified; F17.210 Nicotine dependence, cigarettes, uncomplicated; F17.290 Nicotine dependence, other tobacco product, uncomplicated; Z85.828 Personal history of other malignant neoplasm of skin; Z79.899 Other long term (current) drug therapy; R00.1 Bradycardia, unspecified; R94.31 Abnormal electrocardiogram [ECG] [EKG]; I51.7 Cardiomegaly
CPT/HCPCS: 36415; 71046; 80053; 83690; 84484; 85025; 85610; 85730; 87637; 93005; 99284; A9270

== ENCOUNTER 2025-03-13 08:11 | Outpatient (CLI) | payer OTHER, SELFPAY ==
--- NOTE | ~2025-03-13 | MM_ITS ---
EXAMINATION: MM screening jacky BI w [place] HISTORY: Screening TECHNIQUE: Craniocaudal and mediolateral oblique 3-D tomosynthesis images were obtained and synthetic 2-D images were generated. CAD analysis was submitted and interpreted. COMPARISON: Comparison to multiple prior studies sequentially, with oldest reviewed study dated 09/12/2018. BREAST PARENCHYMAL COMPOSITION: FINDINGS: There is no evidence of suspicious mass, calcification, or architectural distortion to suggest malignancy in either breast. There has been no suspicious interval change. IMPRESSION: 1. No mammographic evidence of malignancy. 2. Recommend routine screening mammography in one year. BI-RADS Category 1: Negative Reviewed, dictated and finalized at location B. EQUIN COLORING ARTIST
--- OUTSIDE RECORDS SUMMARY | 2025-03-13 08:18 | XMS_ITS | Clinical Summary ---
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
--- OUTSIDE RECORDS SUMMARY | 2025-03-13 08:18 | XMS_ITS | Clinical Summary ---
Author Organization [facility] Address [address] [place] [address] Care Team Providers Care Special Agent Fbi Name Role Phone Vicente Akers MD Primary Care Provider [phone] Encounters Date Type Department Care Team Description 02/25/2025 9:06 AM CDT - 02/25/2025 11:59 PM CDT Hospital Encounter [address] [address] Right shoulder pain, unspecified chronicity; Other symptoms and signs involving the musculoskeletal system Discharge Disposition: Discharge to home or self care from Last 3 Months Social History Tobacco Use Types Packs/Day Years Used Date Smoking Tobacco: Never Assessed Comments Unknown Sex and Gender Information Value Date Recorded Sex Assigned at Not on file Legal Sex Female 4:44 PM CDT Gender Identity Not on file Sexual Orientation Not on file Plan of Treatment Health Maintenance Due Date Last Done Comments Breast Cancer Screening-Mammogram 1960 Cervical Cancer Screening 1960 Colon Cancer Screening-Colonoscopy 1960 Depression Screening 1960 Hepatitis C Screening 1960 Hepatitis B Screening 1978 Regular Well Visit/Exam 18-64 1978 Covid-19 Vaccine (2024- season) 2024 04/28/2024, 02/07/2023, 04/24/2022, Additional history exists DTaP/Tdap/Td Vaccine (2 - Td or Tdap) 07/13/2034 07/13/2024 Pneumococcal vaccine <65 Aged Out 02/21/2020 No longer eligible based on patient's age to complete this topic Zoster Vaccine Completed 11/29/2024, 07/13/2024 Influenza Vaccine Completed 02/01/2025, , 02/07/2023, Additional history exists Procedures Procedure Name Priority Date/Time Associated Diagnosis Comments MRI SHOULDER RIGHT WO CONTRAST Schedule Routine, Read Routine (OP Routine) 02/25/2025 10:01 AM CDT Right shoulder pain, unspecified chronicity Other symptoms and signs involving the musculoskeletal system from Last 3 Months Results * MRI Shoulder Right WO Contrast (02/25/2025 10:01 AM CDT) Anatomical Region Laterality Modality Upper Extremities Right Magnetic Reson ance 02/25/2025 1:16 PM CDT Impressions 02/25/2025 1:16 PM CDT 1. There is a full-thickness tear of the anterolateral supraspinatus with a gap measuring 1.5 x 1.2 cm. Tendinosis. Tendon remains lateral to the glenoid. 2. Moderate tendinosis anterior infraspinatus with mild undersurface tearing. 3. Mild osteoarthritis AC joint. 4. Mild chondrosis glenohumeral joint. 5. Moderate joint effusion with fluid extending into the subacromial subdeltoid bursa. Electronically signed by: Ammon Lucero M.D. Narrative 02/25/2025 1:16 PM CDT EXAMINATION: MRI SHOULDER RIGHT WO CONTRAST HISTORY: pain in right shoulder TECHNIQUE: Multiplanar, multisequence MRI of the right shoulder was performed without IV contrast. COMPARISON: No prior. FINDINGS: Rotator cuff: There is a full-thickness tear of the anterolateral supraspinatus measuring 1.5 x 1.2 cm. Adjacent tendinosis. The tendon remains well lateral to the glenoid. There is moderate tendinosis of the anterior infraspinatus with mild undersurface tearing. Subscapularis and teres minor demonstrate no tendinopathy or tear. Overall, there is normal muscle bulk and signal. Biceps tendon: The long head of the biceps tendon appears within the bicipital groove. No evidence of signal abnormality. Marion appears intact. Labrum: No tear is identified on this non-arthrogram exam. Acromion and AC joint: The coracoacromial and coracoclavicular ligaments are intact. Mild osteoarthritis AC joint. Type I acromion. Glenohumeral articulation: No subluxation. Mild chondrosis. Bones: No acute fracture. No suspicious marrow infiltration or avascular necrosis. Joint and bursa: There is a moderate joint effusion with fluid extending through the tear into the subchorial subdeltoid bursa. Soft tissues: The scapular notch and quadrilateral space are unremarkable. There is no axillary lymphadenopathy by size criteria. Procedure Note Ammon Lucero MD - 02/25/2025 EXAMINATION: MRI SHOULDER RIGHT WO CONTRAST HISTORY: pain in right shoulder TECHNIQUE: Multiplanar, multisequence MRI of the right shoulder was performed without IV contrast. COMPARISON: No prior. FINDINGS: Rotator cuff: There is a full-thickness tear of the anterolateral supraspinatus measuring 1.5 x 1.2 cm. Adjacent tendinosis. The tendon remains well lateral to the glenoid. There is moderate tendinosis of the anterior infraspinatus with mild undersurface tearing. Subscapularis and teres minor demonstrate no tendinopathy or tear. Overall, there is normal muscle bulk and signal. Biceps tendon: The long head of the biceps tendon appears within the bicipital groove. No evidence of signal abnormality. Marion appears intact. Labrum: No tear is identified on this non-arthrogram exam. Acromion and AC joint: The coracoacromial and coracoclavicular ligaments are intact. Mild osteoarthritis AC joint. Type I acromion. Glenohumeral articulation: No subluxation. Mild chondrosis. Bones: No acute fracture. No suspicious marrow infiltration or avascular necrosis. Joint and bursa: There is a moderate joint effusion with fluid extending through the tear into the subchorial subdeltoid bursa. Soft tissues: The scapular notch and quadrilateral space are unremarkable. There is no axillary lymphadenopathy by size criteria. IMPRESSION: 1. There is a full-thickness tear of the anterolateral supraspinatus with a gap measuring 1.5 x 1.2 cm. Tendinosis. Tendon remains lateral to the glenoid. 2. Moderate tendinosis anterior infraspinatus with mild undersurface tearing. 3. Mild osteoarthritis AC joint. 4. Mild chondrosis glenohumeral joint. 5. Moderate joint effusion with fluid extending into the subacromial subdeltoid bursa. Electronically signed by: Ammon Lucero M.D. Adilson Leyva MD IMG MRI PROCEDURES Final Resu lt from Last [address] CHOICE PLUS [facility] CHOICE PLUS Care Teams Special Agent F[employer] Relationship Specialty Start Date End Date Vicente Akers MD [address] [id number] PCP - General Family Medicine 02/18/25
--- OUTSIDE RECORDS SUMMARY | 2025-03-13 08:18 | XMS_ITS | Clinical Summary ---
Author Organization [facility] Address [address], [address] [address] Phone Care Team Providers Care Relocation Specialist Name Role Phone Vicente Akres MD Primary Care Provider Allergies Active Allergy [...] Start Date Job End Date Works in [employer] Not on file Not on file Not [...] age to complete this topic Care Teams Relocation Specialist Relationship Specialty Start Date End Date Vicente Akers MD [address] [address] PCP - General Family Medicine 02/16/16
--- OUTSIDE RECORDS SUMMARY | 2025-03-13 08:18 | XMS_ITS | Clinical Summary ---
Author Organization [facility] Address [address] [place] [address] Care Team Providers Care Ground Worker Name Role Phone Vicente Akers MD Primary Care Provider [phone] Source Comments [facility] [employer],non-owned Affiliates and Associated Physician Practices is amultiple site organization consisting of ambulatory clinics and hospital sitesin [place], [place], [place] and [place]. This disclosure is being madepursuant to the Care Everywhere program and may not contain all information available regarding this patient. 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 Gender Identity Not on file Sexual Orientation [...] 08/06/1978 DTAP/TDAP/TD VACCINES (1 - Tdap) 08/11/1979 PAP SMEAR 1981 Cervical Cancer Screening 1990 PAP with HPV 1990 PNEUMOCOCCAL VACCINE 50+ (1 of 1 - PCV) 2010 ZOSTER VACCINE (1 of 2) 2010 DEPRESSION SCREENING 04/30/2024 COVID-19 VACCINE (1 - 2024-2 6 season) 2024 INFLUENZA VACCINE (#1) 2024 02/09/2019 [...] patient's age to complete this topic Insurance [facility] [place] [place] [address] Care Teams Ground Worker Relationship Specialty Start Date End Date Vicente Akers MD PCP - General Family Medicine 02/09/19
--- OUTSIDE RECORDS SUMMARY | 2025-03-13 08:18 | XMS_ITS | Encounter Summary ---
Author Organization [facility] Address [address] [place] [address] Care Team Providers Care Lime Burner Name Role Phone Vicente Akers MD Primary Care Provider [phone] Encounter Details Date Type Department Care Team (Late st Contact Info) Description 11/18/2021 Lab Requisition [facility] DermPath Lab [address] [place] [address] Sander Gil MD [address] [place] [address] Social History Tobacco Use Types Packs/Day Years Used Date Smoking Tobacco: Never Assessed Comments Unknown Sex and Gender Information Value Date Recorded Sex Assigned at Not on file 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 Gender Identity Not on file Sexual Orientation Not on file documented as of this encounter Plan of Treatment Not on file documented as of this encounter Procedures Procedure Name Priority Date/Time Associated Diagnosis Comments DERMATOPATHOLOGY Routine 11/16/2021 12:0 0 AM CDT documented in this encounter Results * DERMATOPATHOLOGY (11/16/2021 12:00 AM CDT) Case Report Dermatopathology Report Case: [id number] Authorizing Provider: Sander Gil MD Collected: 11/16/2021 12:00 AM Ordering Location: [facility] DermPath Lab Received: 11/18/2021 07:34 AM Pathologist: Priscilla Shane MD Specimen: Skin, left nasal tip 2 3:18 PM CDT DERMATOPATHOLOGY LABORATORY Final Diagnosis Specimen A. SKIN, left nasal tip: DERMAL FIBROSIS (L90.5) (see microscopic description) 2 3:18 PM CDT DERMATOPATHOLOGY LABORATORY at 1518 CDT Clinical History Recurring BCC vs. Other. Path# [id number] 2 3:18 PM CDT DERMATOPATHOLOGY LABORATORY Gross Description Specimen A: Received is one formalin filled container labeled with the patient's name and designated left nasal tip. The specimen consists of a shave biopsy measuring [id number]. Jar 0. 2 3:18 PM CDT DERMATOPATHOLOGY [...] characteristic determined by the Dermatopathology Laboratory at [facility], directed by Dr. Kell Shane. These tests need not be, and therefore are not, approved by the [place] Food and Drug Administration. The tests are used for clinical purposes. Billing Codes Specimen Charges Stain Charges 27831 1 2 3:18 PM CDT DERMATOPATHOLOGY LABORATORY Embedded Images 2 3:18 PM CDT DERMATOPATHOLOGY LABORATORY Pathology/Cytolog y TISSUE SPECIMEN FROM SKIN / Unknown 11/16/2021 11/18/2021 7:34 AM CDT us Sander Gil MD LAB - PATHOLOGY/CYTOLOGY ORDER FANG Final Result DERMATOPATHOLOGY LABORATORY [facility] - Department of Dermatology [address], [address] [phone] documented in this encounter Visit Diagnoses Not on filedocumented in this encounter Care Teams Lime Burner Relationship Specialty Start Date End Date Vicente Akers MD PCP - General Family Medicine 02/09/19 documented as of this encounter
== END 2025-03-13 08:12 | disposition home or self-care (01) ==
PROVIDERS: PCP Family Medicine; Visit Provider Obstetrics & Gynecology
DX: Z12.31 Encounter for screening mammogram for malignant neoplasm of breast (principal)
CPT/HCPCS: 77063; 77067